=== PATIENT | female | born 1955 | race American Indian/Alaskan Native ===

== ENCOUNTER 2020-11-05 22:40 | Inpatient (IN) ==
--- NOTE | 2020-11-05 23:25 | Internal Med History&Physical ---
HPI History of Present Illness Patient information: Note initiated : 11/05/20 at 11:14 pm Service Date, if different from initiated Date: [] Patient: Margarita French a 64 y/o F admitted on for Renal Failure. Chief Complaint: [hypoglycemia, hypertensive urgency, progression of CKD ] History of present illness: Ms. French is a 64 year old F type 2 diabetes, chronic kidney disease, essential hypertension, presenting with couple day history of malaise, hyperglycemia, and uncontrolled blood pressures. Patient has chronic history of chronically diseased and her serum creatinine level has been progressing from less than 2 from 2021 gradually above to since 2019. Over the last 2 days, patient has experienced both malaise, uncontrolled blood pressures, as well as hyperglycemia and she had to drink Pepsi in order to keep her blood sugar to stay about 70s. Due to all her symptoms, she presented to her PCP office yesterday and the chemistry shows that her serum creatinine level was 3.6 and she was called to come to outpatient ED for further evaluations. Vital signs at ED presentations significant for systolic blood pressures above 200s. Labs significant for creatinine level from 11/04/2020 at 3.6. Outpatient ED doctor felt like [facility] consult was indicated and he called our [facility] who accepted the patient. Hospitalist service consulted for admission request. Constitutional Constitutional: Present malaise; Absent chills, excessive sweating, fatigue, fever(s) and weakness EENT Eyes: Absent blurry vision, change in vision, loss of vision and other visual disturbances Ears: Absent decreased hearing and tinnitus Nose, mouth and throat: Absent abnormal hearing, dry mouth, headache(s), nasal congestion and sore throat Cardiovascular Cardiovascular: Absent chest pain, chest pain at rest, edema, irregular heart rhythm and palpatations Respiratory Respiratory: Absent cough, dyspnea and wheezing Gastrointestinal Gastrointestinal: Absent abdominal pain, constipation, diarrhea, nausea and vomiting Musculoskeletal Musculoskeletal: Absent back pain, deformity, limited range of motion, muscle cramps, muscle weakness and numbness Integumentary Integumentary: Absent lesions, rash and wounds Neurological Neurological: Absent focal weakness, headache(s) and numbness Psychiatric Psychiatric: Absent anxiety, depression and hallucinations Endocrine Additional comments: hypoglycemia PFSH PFSH All Active Problems (Updated 11/05/20 @ 23:19 by New Raymond MD) Hypoglycemia (Acute) Hypertensive urgency (Acute) CKD (chronic kidney disease) stage 5, GFR less than 15 ml/min (Acute) Stage 3 chronic kidney disease (Acute) Opioid dependence (Chronic) Major depression, recurrent, chronic (Chronic) PTSD (post-traumatic stress disorder) (Chronic) History of ectopic (Chronic ~1986) Hiatal hernia (Chronic ~1988) Family history of breast cancer (Chronic) Depression (Chronic) Proliferative diabetic retinopathy associated with type 2 diabetes mellitus (Chronic) Diabetic peripheral neuropathy associated with type 2 diabetes mellitus (Chronic) Pain (Chronic) Influenza (Chronic) Edema (Chronic) Diarrhea (Chronic) Acute UTI (Chronic) Alopecia areata (Chronic) Abnormal liver enzymes (Chronic) Malaise and fatigue (Chronic) Primary fibromyalgia syndrome (Chronic) Adjustment disorder with depressed mood (Chronic) Diabetes mellitus (Chronic) Adjustment disorder (Chronic) Chronic pain (Chronic) Backache (Chronic) Vitamin D deficiency (Chronic) Knee pain (Chronic) Bakers cyst (Chronic) Constipation (Chronic) Proteinuria (Chronic) Vitamin B12 deficiency (non anemic) (Chronic) Right wrist sprain (Chronic) Obesity (Chronic) Adenomatous colon polyp (Chronic) Chronic kidney disease, stage I (Chronic) Perimenopause (Chronic) Cotton wool spots (Chronic) Diabetes mellitus with retinopathy (Chronic) Microalbuminuria (Chronic) Early cataracts, bilateral (Chronic) Hx of total knee arthroplasty (Chronic 08/23/15) Change in mental status (Chronic) Encounter for long-term current use of other high-risk medications (Chronic) Osteoporosis (Chronic) Compression fracture of body of thoracic vertebra (Chronic) Paresthesia of both hands (Chronic) Right knee pain (Chronic) Encounter for long-term (current) use of other high-risk medications (Chronic) Fibromyalgia (Chronic) History of orthopedic surgery (Chronic) History of appendectomy (Chronic ~1988) History of cholecystectomy (Chronic ~1988) Hypertension, essential (Chronic) Hyperlipidemia (Chronic) Diabetes mellitus, type II (Chronic) Osteoarthritis (Chronic) Osteophyte of foot (Chronic) Pain, joint, multiple sites (Chronic) Rheumatoid arthritis (Chronic) Medical History (Updated 11/05/20 @ 23:19 by New Raymond MD) Abnormal liver enzymes Acute UTI Adenomatous colon polyp Adjustment disorder Adjustment disorder with depressed mood Alopecia areata Backache Bakers cyst Change in mental status Chronic kidney disease, stage I Chronic pain Compression fracture of body of thoracic vertebra Constipation Cotton wool spots OU Depression Diabetes mellitus Diabetes mellitus with retinopathy Diabetes mellitus, type II Diabetic peripheral neuropathy associated with type 2 diabetes mellitus Diarrhea Early cataracts, bilateral Edema Encounter for long-term (current) use of other high-risk medications Encounter for long-term current use of other high-risk medications Family history of breast cancer Fibromyalgia Hiatal hernia (~1988) History of ectopic (~1986) Hyperlipidemia Hypertension, essential Influenza Knee pain Major depression, recurrent, chronic Malaise and fatigue Microalbuminuria Obesity Opioid dependence Osteoarthritis Osteophyte of foot Involving the head of the left second metacarpal Osteoporosis Pain Pain, joint, multiple sites Paresthesia of both hands Perimenopause Primary fibromyalgia syndrome Proliferative diabetic retinopathy associated with type 2 diabetes mellitus Proteinuria PTSD (post-traumatic stress disorder) Rheumatoid arthritis Right knee pain Right wrist sprain Stage 3 chronic kidney disease Vitamin B12 deficiency (non anemic) Vitamin D deficiency Surgical History (Updated 10/27/20 @ 13:56 by Jenny Granados) History of appendectomy (~1988) History of arthroscopy of knee (06/06/13) History of cholecystectomy (~1988) History of colonoscopy (04/26/07) History of herniorrhaphy Hiatal History of orthopedic surgery History of salpingectomy (~1986) Right due to ectopic History of tonsillectomy (~1966) History of tooth extraction Hx of total knee arthroplasty (08/23/15) Status post cataract extraction and insertion of intraocular lens (05/01/12) Status post laser cataract surgery (05/15/12) Family History Unknown Arthritis Mother Malignant neoplasm Father Type 2 diabetes mellitus Grandmother Breast cancer Maternal Maternal Social History (Updated 10/27/20 @ 13:58 by Jenny Granados) adopted: No caregiver/support person: No foster care: No household members: family housing: house lives independently: No marital status: occupational status: unemployed and disabled occupational exposures/hazards: No smoking status: Former smoker alcohol intake frequency: does not drink substance use type: does not use additional history: Quit smoking in 2019. MEDS/ALLERGIES Home Medications and Allergies Home Medications Medication Instructions Recorded Confirmed Type insulin aspart U-100 100 unit/mL 20 unit SUB-Q AC ml 04/08/15 02/02/20 History subcutaneous solution insulin glargine 100 unit/mL 20 unit SUB-Q BID ml 04/08/15 02/02/20 History subcutaneous solution blood sugar diagnostic #20 each 08/15/17 12/24/19 History calcium carbonate-vitamin D2 PO BID 08/15/17 02/02/20 History [Oyster Shell Calcium-Vit D2] cyanocobalamin (vitamin B-12) 1,000 mcg SUB-Q QMONTH 08/15/17 02/02/20 History 1,000 mcg/mL injection kit lancets #50 each 08/15/17 02/02/20 History pen needle, diabetic #1 08/15/17 02/02/20 History docusate sodium 100 mg capsule 100 mg PO BID PRN cap 01/23/18 02/02/20 History polyethylene glycol MISCELLANE QDAY PRN 01/23/18 02/02/20 History clotrimazole 1 % topical cream 1 applic TOPICAL BID 09/24/19 02/02/20 History ergocalciferol (vitamin D2) 50,000 unit PO QWEEK tab 09/24/19 10/27/20 History unit tablet magnesium oxide 420 mg tablet 420 mg PO QDAY 09/24/19 02/02/20 History metoclopramide HCl 10 mg tablet 10 mg PO QACHS 09/24/19 02/02/20 History methocarbamol 500 mg tablet 500 mg PO TID 02/02/20 10/27/20 History metoprolol succinate 25 mg capsule 25 mg PO QDAY 02/02/20 10/27/20 History sprinkle, ext. release 24 hr morphine 30 mg immediate release 30 mg PO TID tab 02/02/20 10/27/20 History tablet zolpidem 5 mg tablet 5 mg PO QHS PRN 02/02/20 10/27/20 History insulin detemir U-100 100 unit/mL 60 unit SUB-Q BID ml 10/27/20 10/27/20 History (3 mL) subcutaneous pen insulin lispro 100 unit/mL 20 unit SUBCUT TID ml 10/27/20 10/27/20 History subcutaneous solution naloxone 4 mg/actuation nasal spray 1 spray INTRANASAL Q2M 10/27/20 10/27/20 History omeprazole 20 mg capsule,delayed 20 mg PO QAM cap 10/27/20 10/27/20 History release Allergies Allergy/AdvReac Type Severity Reaction Status Date / Time gabapentin Allergy Intermediate Hives Verified 02/02/20 15:02 methotrexate Allergy Intermediate Hives Verified 02/02/20 15:02 duloxetine Allergy Unknown Unknown Verified 02/02/20 15:02 glipizide Allergy Unknown Unknown Verified 02/02/20 15:02 pioglitazone [From Actos] Allergy Unknown Unknown Verified 02/02/20 15:02 Rosiglitazone [From Avandia] Allergy Unknown Unknown Verified 02/02/20 15:02 EXAM Constitutional General appearance: cooperative and no acute distress Head Head exam: Present atraumatic and normocephalic Eye Eye exam: Present EOMI and PERRL ENT ENT exam: Present mucous membranes moist, normal exam and normal external ear exam Neck Neck exam: Present normal inspection; Absent lymphadenopathy, tenderness and thyromegaly Respiratory Respiratory exam: Absent accessory muscle use, respiratory distress and wheezes Cardiovascular Cardiovascular exam: Present normal rate and rhythm; Absent JVD GI/Abdominal GI/Abdominal exam: Present normal bowel sounds and soft; Absent organomegaly and tenderness Extremities Exam Extremities exam: Present full ROM, normal capillary refill and normal inspection; Absent tenderness Neurological Exam Neurological exam: Present alert, CN II-XII intact and oriented X3; Absent motor sensory deficit Psychiatric Psychiatric exam: Present normal affect and normal mood; Absent anxious and depressed Skin Skin exam: Present dry and intact A/P Assessment and plan (1) CKD (chronic kidney disease) stage 5, GFR less than 15 ml/min: Status: Acute (2) Diabetic peripheral neuropathy associated with type 2 diabetes mellitus: Status: Chronic (3) Diabetes mellitus, type II: Status: Chronic (4) Hyperlipidemia: Status: Chronic (5) Hypertensive urgency: Status: Acute (6) Opioid dependence: Status: Chronic Qualifiers: Substance use status: uncomplicated Qualified Code(s): F11.20 - Opioid dependence, uncomplicated (7) Hypoglycemia: Status: Acute Narrative A/P Narrative: Assessment and Plans: 1. Progression of chronic kidney disease, now stage 5: Inpatient PCU [employer] [employer] Super[employer] consulted for co-management Avoid nephrotoxic agents CMP in the morning to trend kidney functions Patient still makes urine, no need for dialysis yet 2. Hypoglycemia associated with T2DM: Due to natural progression of her chronic kidney disease, her kidneys are not as effective in clearing insulin as before. If she did not have recent dosage adjustment of her insulin regimen, she might be overdosed on her present insulin regimen HgA1c Hold any scheduled insulin therapy Low dose correctional scale insulin Lispro AC HS Accu Chek AC HS Hypoglycemia protocol Diabetic diet 3. Hypertensive urgency: Hydralazine 10mg IV q4hr PRN SBP>=180mmHg and/or DBP>=110mmHh Hydralazine 25mg PO QID Amlodipine 10mg PO daily Avoid SKINNY-i or ARB in face of CKD5 4. Opioid dependence: Need to dose-adjust home dose of Morphine, due to natural progression of her chronic kidney disease hence reduced renal clearance of opioids GI ppx: continue home oral PPI DVT ppx: Heparin Code status: Guarded Disposition: inpatient PCU Time Spent With Patient Time: Total time spent is greater than 50% in coordination of care (as documented) at patient's floor/unit and/or counseling patient: Total time spent with greater than 50% in coordination of care (as documented) at patient's floor/unit and/or counseling patient:: Greater than 35 minutes
[2020-11-05] MEDS ORDERED: METOCLOPRAMIDE 10 MG TABLET PO SCH (23:30)
[2020-11-06] MEDS ORDERED: DEXTROSE 31 GM ORAL.SUSP PO PRN (00:56)
[2020-11-06] MEDS ORDERED: ONDANSETRON 4 MG/2 ML VIAL IV PRN (00:56)
[2020-11-06] MEDS ORDERED: DEXTROSE 50% 50 ML VIAL IV PRN (00:56)
[2020-11-06] MEDS ORDERED: ACETAMINOPHEN 325 MG TABLET PO PRN (00:56)
[2020-11-06] MEDS ORDERED: hydrALAZINE 20 MG/ML VIAL IV PRN (00:56)
[2020-11-06] MEDS ORDERED: ZOLPIDEM 5 MG TABLET PO PRN (00:56)
[2020-11-06] MEDS ORDERED: morphine 4 MG/ML VIAL IV PRN (00:56)
[2020-11-06] MEDS ORDERED: amLODIPine 5 MG TABLET ONE (01:40)
[2020-11-06] MEDS: hydrALAZINE 25 MG TABLET PO SCH ×2 (01:42→09:36)
[2020-11-06] MEDS: amLODIPine 10 MG TABLET PO SCH ×2 (01:42→09:32)
[2020-11-06] MEDS ORDERED: 0.9 % SODIUM CHLORIDE 10 ML SYRINGE IV SCH (06:00)
[2020-11-06 06:32] LABS: Basophils # (Auto) 0.05 K/mcL (0.00-0.30); Basophils % (Auto) 0.6 % (0.0-2.0); Eosinophils # (Auto) 0.46 K/mcL (0.00-0.70); Eosinophils % (Auto) 5.4 % (0.0-7.0); Hematocrit 35.1 % (34.1-44.9); Hemoglobin 11.4 g/dL (11.2-15.7); Lymphocytes # (Auto) 1.88 K/mcL (1.50-4.80); Lymphocytes % (Auto) 21.9 % (15.5-49.0); Mean Cell Volume 93.1 fL (80.0-100.0); Mean Corpuscular HGB Conc 32.5 g/dL (31.0-36.0); Mean Platelet Volume 10.8 fL (7.4-10.4); Monocytes # (Auto) 0.63 K/mcL (0.10-0.90); Monocytes % (Auto) 7.4 % (1.0-12.0); Neutrophils % (Auto) 64.7 % (38.0-78.0); Platelet Count 184 K/mcL (140-440); RBC 3.77 M/mcL (3.59-5.38); WBC 8.6 K/mcL (4.5-11.0)
[2020-11-06 07:11] LABS: ALT/SGPT 8 U/L (<40); AST/SGOT 12 U/L (<32); Albumin 2.4 gm/dL (3.2-5.2); Albumin/Globulin Ratio 0.8 (1.0-2.3); Alkaline Phosphatase 68 U/L (39-117); Bilirubin,Total < 0.2 mg/dL (0.1-1.0); Blood Urea Nitrogen 31 mg/dL (8-23); Calcium 7.7 mg/dL (8.6-10.4); Carbon Dioxide 20 mmol/L (22-30); Chloride 106 mmol/L (96-108); Glomerular Filtration Rate 14; Glucose 168 mg/dL (70-105)
[2020-11-06] MEDS ORDERED: METOCLOPRAMIDE 10 MG TABLET PO SCH (07:30)
[2020-11-06] MEDS ORDERED: INSULIN LISPRO 1 UNIT/0.01 ML UNIT SQ SCH (07:30)
--- NOTE | 2020-11-06 08:07 | Nephrology Consult Note ---
HPI Data of Consult Patient: new to practice Consult date: 11/06/20 Requesting physician: New Raymond Primary Care Provider: Matthew Faria Consult Narrative Chief complaint: Weakness Reason for consult: Acute kidney injury on chronic kidney disease stage 4 History of present illness: Margarita French is a 64-year-old female with hypertension, diabetes mellitus type 2, rheumatoid arthritis, chronic kidney disease stage 4 presented to her PCP at [facility] for weakness for 2 days. Next day, her serum creatinine level came back above 4. She was sent to [place] ED. In ED, her systolic blood pressure was above 200 and serum creatinine was 3.6. She was admitted on 11/05/20. Baseline serum creatinine: 0.9-1.4 (eGFR 42-61) in 2015 to 2018, 2.02-2.44 (eGFR 20-25) in 2019. Nephrology consultation was requested for acute kidney injury. cc:: CC: New Raymond MD Constitutional Constitutional: Absent weakness EENT Eyes: Absent change in vision Nose, mouth and throat: Absent sore throat Cardiovascular Cardiovascular: Absent dyspnea and edema Respiratory Respiratory: Absent cough and dyspnea Gastrointestinal Gastrointestinal: Absent nausea and vomiting Genitourinary Genitourinary: Absent dysuria and hematuria Integumentary Integumentary: Absent rash and wounds Neurological Neurological: Absent confusion and weakness Psychiatric Psychiatric: Absent anxiety and panic attacks Hematologic/Lymphatic Hematologic/Lymphatic: Absent easy bleeding and easy bruising Allergic/Immunologic Allergic/Immunologic: Absent tongue swelling and uticaria PFSH PFSH All Active Problems (Updated 11/06/20 @ 08:06 by Jennifer Lopez MD) Metabolic acidosis (Acute) Acute renal failure superimposed on stage 4 chronic kidney disease (Acute) Hypoglycemia (Acute) Hypertensive urgency (Acute) CKD (chronic kidney disease) stage 5, GFR less than 15 ml/min (Acute) Stage 3 chronic kidney disease (Acute) Opioid dependence (Chronic) Major depression, recurrent, chronic (Chronic) PTSD (post-traumatic stress disorder) (Chronic) History of ectopic (Chronic ~1986) Hiatal hernia (Chronic ~1988) Family history of breast cancer (Chronic) Depression (Chronic) Proliferative diabetic retinopathy associated with type 2 diabetes mellitus (Chronic) Diabetic peripheral neuropathy associated with type 2 diabetes mellitus (Chronic) Pain (Chronic) Influenza (Chronic) Edema (Chronic) Diarrhea (Chronic) Acute UTI (Chronic) Alopecia areata (Chronic) Abnormal liver enzymes (Chronic) Malaise and fatigue (Chronic) Primary fibromyalgia syndrome (Chronic) Adjustment disorder with depressed mood (Chronic) Diabetes mellitus (Chronic) Adjustment disorder (Chronic) Chronic pain (Chronic) Backache (Chronic) Vitamin D deficiency (Chronic) Knee pain (Chronic) Bakers cyst (Chronic) Constipation (Chronic) Proteinuria (Chronic) Vitamin B12 deficiency (non anemic) (Chronic) Right wrist sprain (Chronic) Obesity (Chronic) Adenomatous colon polyp (Chronic) Chronic kidney disease, stage I (Chronic) Perimenopause (Chronic) Cotton wool spots (Chronic) Diabetes mellitus with retinopathy (Chronic) Microalbuminuria (Chronic) Early cataracts, bilateral (Chronic) Hx of total knee arthroplasty (Chronic 08/23/15) Change in mental status (Chronic) Encounter for long-term current use of other high-risk medications (Chronic) Osteoporosis (Chronic) Compression fracture of body of thoracic vertebra (Chronic) Paresthesia of both hands (Chronic) Right knee pain (Chronic) Encounter for long-term (current) use of other high-risk medications (Chronic) Fibromyalgia (Chronic) History of orthopedic surgery (Chronic) History of appendectomy (Chronic ~1988) History of cholecystectomy (Chronic ~1988) Hypertension, essential (Chronic) Hyperlipidemia (Chronic) Diabetes mellitus, type II (Chronic) Osteoarthritis (Chronic) Osteophyte of foot (Chronic) Pain, joint, multiple sites (Chronic) Rheumatoid arthritis (Chronic) Medical History (Updated 11/06/20 @ 08:06 by Jennifer Lopez MD) Abnormal liver enzymes Acute UTI Adenomatous colon polyp Adjustment disorder Adjustment disorder with depressed mood Alopecia areata Backache Bakers cyst Change in mental status Chronic kidney disease, stage I Chronic pain Compression fracture of body of thoracic vertebra Constipation Cotton wool spots OU Depression Diabetes mellitus Diabetes mellitus with retinopathy Diabetes mellitus, type II Diabetic peripheral neuropathy associated with type 2 diabetes mellitus Diarrhea Early cataracts, bilateral Edema Encounter for long-term (current) use of other high-risk medications Encounter for long-term current use of other high-risk medications Family history of breast cancer Fibromyalgia Hiatal hernia (~1988) History of ectopic (~1986) Hyperlipidemia Hypertension, essential Influenza Knee pain Major depression, recurrent, chronic Malaise and fatigue Microalbuminuria Obesity Opioid dependence Osteoarthritis Osteophyte of foot Involving the head of the left second metacarpal Osteoporosis Pain Pain, joint, multiple sites Paresthesia of both hands Perimenopause Primary fibromyalgia syndrome Proliferative diabetic retinopathy associated with type 2 diabetes mellitus Proteinuria PTSD (post-traumatic stress disorder) Rheumatoid arthritis Right knee pain Right wrist sprain Stage 3 chronic kidney disease Vitamin B12 deficiency (non anemic) Vitamin D deficiency Surgical History (Updated 10/27/20 @ 13:56 by Jenny Granados) History of appendectomy (~1988) History of arthroscopy of knee (06/06/13) History of cholecystectomy (~1988) History of colonoscopy (04/26/07) History of herniorrhaphy Hiatal History of orthopedic surgery History of salpingectomy (~1986) Right due to ectopic History of tonsillectomy (~1966) History of tooth extraction Hx of total knee arthroplasty (08/23/15) Status post cataract extraction and insertion of intraocular lens (05/01/12) Status post laser cataract surgery (05/15/12) Family History Unknown Arthritis Mother Malignant neoplasm Father Type 2 diabetes mellitus Grandmother Breast cancer Maternal Maternal Social History (Updated 10/27/20 @ 13:58 by Jenny Granados) adopted: No caregiver/support person: No foster care: No household members: family housing: house lives independently: No marital status: occupational status: unemployed and disabled occupational exposures/hazards: No smoking status: Former smoker alcohol intake frequency: does not drink substance use type: does not use additional history: Quit smoking in 2019. MEDS/ALLERGIES Home Medications and Allergies Home Medications Medication Instructions Recorded Confirmed Type blood sugar diagnostic #20 each 08/15/17 12/24/19 History lancets #50 each 08/15/17 02/02/20 History pen needle, diabetic #1 08/15/17 02/02/20 History docusate sodium 100 mg capsule 100 mg PO BID PRN cap 01/23/18 11/06/20 History magnesium oxide 420 mg tablet 420 mg PO QDAY 09/24/19 11/06/20 History morphine 30 mg immediate release 30 mg PO TID tab 02/02/20 11/06/20 History tablet zolpidem 5 mg tablet 5 mg PO QHS PRN 02/02/20 11/06/20 History insulin detemir U-100 100 unit/mL 44 unit SUB-Q QAM ml 10/27/20 11/06/20 History (3 mL) subcutaneous pen naloxone 4 mg/actuation nasal spray 1 spray INTRANASAL DAILY PRN 10/27/20 11/06/20 History flash glucose scanning reader 11/06/20 11/06/20 History [FreeStyle Bowen 14 Day [place]] insulin lispro [Admelog U-100 See Protocol SUBCUT ACHS 11/06/20 11/06/20 History Insulin lispro] naloxone [Narcan] INTRANASAL 11/06/20 11/06/20 History polyethylene glycol 3350 [Miralax] 17 g PO DAILY PRN 11/06/20 11/06/20 History Allergies Allergy/AdvReac Type Severity Reaction Status Date / Time gabapentin Allergy Intermediate Hives Verified 11/06/20 01:08 methotrexate Allergy Intermediate Hives Verified 11/06/20 01:08 duloxetine Allergy Unknown Unknown Verified 11/06/20 01:08 glipizide Allergy Unknown Unknown Verified 11/06/20 01:08 pioglitazone [From Actos] Allergy Unknown Unknown Verified 11/06/20 01:08 Rosiglitazone [From Avandia] Allergy Unknown Unknown Verified 11/06/20 01:08 Physical Examination Vital Signs Vital signs: Temp Pulse Resp BP Pulse Ox 98.2 F 80 18 113/49 98 11/06/20 04:01 11/06/20 05:01 11/06/20 05:01 11/06/20 05:01 11/06/20 05:01 General Appearance General appearance: well-developed and well-nourished EENT EENT: mucous membranes moist Neck Neck: no JVD Respiratory Respiratory: clear Cardiovascular Cardiology: no edema, regular rate and regular rhythm Gastrointestinal Gastrointestinal: no tenderness Integumentary Integumentary: no rash Neurologic Neurologic: no focal deficit and alert and oriented x3 Psychiatric Psychiatric: mood/affect appropriate and cooperative Results Lab Results Result Diagrams: 11/06/20 05:14 11/06/20 05:14 Lab results: Most recent lab results Calcium 7.7 mg/dL (8.6-10.4) L 11/06/20 05:14 A/P Assessment and plan (1) Acute renal failure superimposed on stage 4 chronic kidney disease: Assessment and plan: Margarita French is a 64-year-old female with hypertension, diabetes mellitus type 2, rheumatoid arthritis, chronic kidney disease stage 4 presented to her PCP at [facility] for weakness for 2 days. Next day, her serum creatinine level came back above 4. She was sent to [place] ED. In ED, her systolic blood pressure was above 200 and serum creatinine was 3.6. She was admitted on 11/05/20. Baseline serum creatinine: 0.9-1.4 (eGFR 42-61) in 2015 to 2019, 2.02-2.44 (eGFR 20-25) in 2019. Nephrology consultation was requested for acute kidney injury. Acute kidney injury on chronic kidney disease stage 4 with metabolic acidosis, present on arrival. There is no recent history of IV contrast administration or NSAID use. Intravascular volume depletion is unlikely. She was referred for outpatient nephrology on 10/18/[address] Connor on 11/09/20. Hypertensive urgency. She used Lisinopril in the past, but it was discontinued for hypotension. She was not on any antihypertensives. Current Medications: Amlodipine 10 mg daily, Hydralazine 25 mg four times daily, Metoprolol succinate 25 mg daily. Previous work up: Labs on 12/24/19: HepB S Ag negative, Hep C Ab negative. Urinalysis on 08/23/15: Yellow, Clear, pH 5.0, SG 1.019, protein >500, blood negative, leukocyte esterase negative, urine WBC. Renal US on 10/27/20: Postvoid residual 24 ml, otherwise normal. CT Abdomen and Pelvis without contrast on 08/24/15: Kidneys normal. Progress: Serum creatinine increased from 3.5 to 3.4 overnight. Baseline serum creatinine: 0.9-1.4 (eGFR 42-61) in 2015 to 2018, 2.02-2.44 (eGFR 20-25) in 2019. Urine output: 200 ml reported overnight. Metabolic acidosis, mild. Hypertension, controlled. Recommendations/Plan: No acute hemodialysis need. Avoid NSAIDs, nephrotoxic medications and IV contrast. Monitor BMP and urine output. She was referred for outpatient nephrology on 10/18/[address] Connor on 11/09/20. She may be discharged and seen as outpatient. Status: Acute (2) Metabolic acidosis: Status: Acute (3) Hypertensive urgency: Status: Acute Time Spent With Patient Time: Total time spent is greater than 50% in coordination of care (as documented) at patient's floor/unit and/or counseling patient:
[2020-11-06] MEDS ORDERED: MORPHINE 30 MG PO SCH (09:00)
[2020-11-06] MEDS ORDERED: CLOTRIMAZOLE CRM 1% 1 DOSE TUBE TOPICAL SCH ×2 (09:00)
[2020-11-06] MEDS ORDERED: DOCUSATE SODIUM 100 MG CAPSULE PO SCH (09:00)
[2020-11-06] MEDS ORDERED: METOPROLOL SUCCINATE 25 MG PO SCH (09:00)
[2020-11-06] MEDS ORDERED: METHOCARBAMOL 500 MG TABLET PO SCH ×2 (09:00)
[2020-11-06] MEDS ORDERED: HEPARIN 5,000 UNIT/ML VIAL SQ SCH (09:00)
[2020-11-06] MEDS ORDERED: MAGNESIUM OXIDE 400 MG TABLET PO SCH (09:00)
[2020-11-06] MEDS ORDERED: [UNRECOGNIZED DRUG - OTHER] SUB-Q SCH (09:00)
[2020-11-06] MEDS ORDERED: MAGNESIUM OXIDE 420 MG PO SCH (09:00)
[2020-11-06] MEDS ORDERED: OMEPRAZOLE 20 MG CAPSULE PO SCH ×2 (09:00)
[2020-11-06] MEDS ORDERED: METOPROLOL SUCCINATE 25 MG TAB.XL.24H PO SCH (09:00)
[2020-11-06] MEDS ORDERED: CYANOCOBALAMIN 1000 MCG SUB-Q SCH (09:00)
[2020-11-06] MEDS ORDERED: [UNRECOGNIZED DRUG - OTHER] PO SCH (09:00)
[2020-11-06] MEDS ORDERED: CYANOCOBALAMIN SUB-Q SCH (09:00)
--- NOTE | 2020-11-06 09:48 | Discharge Summary ---
Discharge Provider Provider Patient information: Note initiated : 11/06/20 at 9:45 am Service Date, if different from initiated Date: [] Patient: Margarita French 64 y/o F admitted on 11/06/20 for Renal Failure. Chief Complaint: [HTN urgency, hypoglycemia] Date of admission: 11/06/20 00:46 Discharge date: 11/06/20 Primary care physician: Matthew Faria Discharge Meds Discharge Medications Home Medications blood sugar diagnostic #20 each 08/15/17 [History Confirmed 12/24/19 Last Taken Unknown] lancets #50 each 08/15/17 [History Confirmed 02/02/20 Last Taken Unknown] pen needle, diabetic #1 08/15/17 [History Confirmed 02/02/20 Last Taken Unknown] docusate sodium 100 mg capsule 100 mg PO BID PRN cap 01/23/18 [History Confirmed 11/06/20 Last Taken Unknown] magnesium oxide 420 mg tablet 420 mg PO QDAY 09/24/19 [History Confirmed 11/06/20 Last Taken 10/30/20] zolpidem 5 mg tablet 5 mg PO QHS PRN 02/02/20 [History Confirmed 11/06/20 Last Taken 11/03/20] naloxone 4 mg/actuation nasal spray 1 spray INTRANASAL DAILY PRN 10/27/20 [History Confirmed 11/06/20 Last Taken Unknown] FreeStyle Bowen 14 Day Hanson 11/06/20 [History Confirmed 11/06/20 Last Taken Unknown] amlodipine 10 mg PO DAILY 30 Days tab 11/06/20 [Rx Last Taken Unknown] bisacodyl [Dulcolax (bisacodyl)] [address] QDAY PRN #12 ea 11/06/20 [Rx Last Taken Unknown] hydralazine 25 mg PO QID 30 Days #120 tab 11/06/20 [Rx Last Taken Unknown] insulin lispro [Admelog U-100 Insulin lispro] See Protocol SUBCUT ACHS 11/06/20 [History Confirmed 11/06/20 Last Taken Unknown] morphine 15 mg PO TID 7 Days 11/06/20 [Rx Last Taken Unknown] omeprazole 20 mg PO QAM #10 cap 11/06/20 [Rx Last Taken Unknown] polyethylene glycol 3350 [Miralax] 17 g PO DAILY PRN 11/06/20 [History Confirmed 11/06/20 Last Taken Unknown] COURSE Hospital Course Hospital course: Patient was admitted on November 05, 2020 for hypertensive urgency, hypoglycemia, as well as progressions of chronic kidney disease now to stage V. Hypoglycemia protocol was initiated and scheduled insulin therapy were held. Oral antihypertensives were all instituted to achieve adequate blood pressure control. Patient continue to made urine. Sr. Logistics Analyst was consulted and thought no hemodialysis was indicated at the time being and continuations of oral antihypertensives were appropriate. Patient achieved clinical stability on second day of hospitalization and she recovered quicker than expectations. The decision was made to discharge patient home with prescriptions given to her, instructions to follow-up with PCP in 1 to 2 weeks given to her, and all questions were answered prior to patient being physically discharged. Discharge diagnosis: hypoglycemia, HTN urgency Time Spent with Patient Time attestation: Total time spent providing and/or coordinating discharge services: Patient was admitted on November 05, 2020 for hypertensive urgency, hypoglycemia, as well as progressions of chronic kidney disease now to stage V. Hypoglycemia protocol was initiated and scheduled insulin therapy were held. Oral antihypertensives were all instituted to achieve adequate blood pressure control. Patient continue to made urine. Sr. Logistics Analyst was consulted and thought no hemodialysis was indicated at the time being and continuations of oral antihypertensives were appropriate. Patient achieved clinical stability on second day of hospitalization and she recovered quicker than expectations. The decision was made to discharge patient home with prescriptions given to her, instructions to follow-up with PCP in 1 to 2 weeks given to her, and all questions were answered prior to patient being physically discharged. EXAM Constitutional Vitals: Temp Pulse Resp BP Pulse Ox 37.4 C H 77 18 144/69 97 11/06/20 08:02 11/06/20 08:02 11/06/20 08:02 11/06/20 08:02 11/06/20 08:02 General appearance: cooperative and no acute distress Head Head exam: Present atraumatic and normocephalic Eye Eye exam: Present EOMI and PERRL ENT ENT exam: Present mucous membranes moist, normal exam and normal external ear exam Neck Neck exam: Present normal inspection; Absent lymphadenopathy, tenderness and thyromegaly Respiratory Respiratory exam: Absent accessory muscle use, respiratory distress and wheezes Cardiovascular Cardiovascular exam: Present normal rate and rhythm; Absent JVD GI/Abdominal GI/Abdominal exam: Present normal bowel sounds and soft; Absent organomegaly and tenderness Extremities Exam Extremities exam: Present full ROM, normal capillary refill and normal inspection; Absent tenderness Neurological Exam Neurological exam: Present alert, CN II-XII intact and oriented X3; Absent motor sensory deficit Psychiatric Psychiatric exam: Present normal affect and normal mood; Absent anxious and depressed Skin Skin exam: Present dry and intact Discharge Data Data Completed and Pending Labs on day of discharge: Labs from last 24 hours 11/06/20 11/06/20 05:14 05:14 WBC 8.6 RBC 3.77 Hgb 11.4 Hct 35.1 MCV 93.1 MCH 30.2 MCHC 32.5 RDW 13.0 Plt Count 184 MPV 10.8 H Neut % (Auto) 64.7 Lymph % (Auto) 21.9 [place] % (Auto) 7.4 Eos % (Auto) 5.4 Baso % (Auto) 0.6 Lymph # (Auto) 1.88 [place] # (Auto) 0.63 Eos # (Auto) 0.46 Baso # (Auto) 0.05 Absolute Neutrophils 5.55 Sodium 136 Potassium 4.1 Chloride 106 Carbon Dioxide 20 L Anion Gap 10.0 BUN 31 H Creatinine 3.4 H GFR Calculation 14 Glucose 168 H Calcium 7.7 L Total Bilirubin < 0.2 AST 12 ALT 8 Alkaline Phosphatase 68 Total Protein 5.4 L Albumin 2.4 L Globulin 3.0 Albumin/Globulin Ratio 0.8 L Discharge Plan Patient/Caregiver Discharge Instructions Activity: increase activity as tolerated Diet: Consistent Carbohydrate Prescriptions: New hydralazine 25 mg Tablet 25 mg PO QID 30 Days Qty: 120 RF: 0 amlodipine 10 mg Tablet 10 mg PO DAILY 30 Days RF: 0 omeprazole 20 mg Capsule,Delayed Release(Dr/Ec) 20 mg PO QAM Qty: 10 RF: 0 Morphine 15 mg PO TID 7 Days RF: 0 bisacodyl [Dulcolax (bisacodyl)] 10 mg suppository [address] QDAY PRN (Reason: constipation) Qty: 12 RF: 0 Continued zolpidem 5 mg tablet 5 mg PO QHS PRN (Reason: Insomnia) RF: 0 (DME) blood sugar diagnostic [FreeStyle Lite Strips] strip See Dose Instructions .ROUTE .MEDSUPPLY Qty: 20 RF: 0 (DME) pen needle, diabetic needle See Dose Instructions .ROUTE .MEDSUPPLY Qty: 1 RF: 0 (DME) lancets misc See Dose Instructions .ROUTE .MEDSUPPLY Qty: 50 RF: 0 magnesium oxide 420 mg tablet 420 mg PO QDAY RF: 0 Narcan 4 mg/actuation spray,non-aerosol 1 spray intranasal DAILY PRN (Reason: (Drug) Ingestion) RF: 0 docusate sodium 100 mg capsule 100 mg PO BID PRN (Reason: Constipation) RF: 0 insulin lispro [Admelog U-100 Insulin lispro] 100 unit/mL solution See Protocol sliding scale dose subcut ACHS RF: 0 polyethylene glycol 3350 [Miralax] 17 gram Powder In Packet 17 g PO DAILY PRN (Reason: Constipation) RF: 0 (DME) FreeStyle Bowen 14 Day Hanson Misc MISCELLANEOUS RF: 0 Discontinued morphine 30 mg tablet 30 mg PO TID RF: 0 Levemir FlexTouch U-100 Insuln 100 unit/mL (3 mL) insulin pen 44 unit SUB-Q QAM RF: 0 Follow Up Plan Patient Disposition: Home, Self-Care Rehab Potential: Good I certify that the patient requires SNF services: No Overall status at discharge: patient is back to baseline Discharge Orders: Discharge Order (Routine); Ordered 11/06/20 Ordered By: New Raymond
[2020-11-06] MEDS ORDERED: morphine 15 MG TABLET PO PRN (10:18)
[2020-11-06] MEDS ORDERED: SENNOSIDES 1 TABLET PO SCH (21:00)
== END 2020-11-06 11:42 | disposition home or self-care (01) | DRG 305 ==
LOC: ICU 11-06 00:46
PROVIDERS: ADMIT Internal Medicine; ATTEND Internal Medicine

== ENCOUNTER 2022-03-21 19:50 | Inpatient (IN) ==
[2022-03-21] MEDS ORDERED: ACETAMINOPHEN 325 MG TABLET PO PRN (21:21)
[2022-03-21] MEDS ORDERED: IBUPROFEN 600 MG TABLET PO PRN (21:21)
[2022-03-21] MEDS ORDERED: ONDANSETRON 4 MG/2 ML VIAL IV PRN (21:21)
[2022-03-21] MEDS: 0.9 % SODIUM CHLORIDE 10 ML SYRINGE IV SCH (21:37)
[2022-03-21] MEDS ORDERED: HYDROcodone/APAP 5/325MG TABLET PO ONE (21:43)
[2022-03-21] MEDS: HYDROcodone/APAP 5/325MG TABLET PO PRN (21:47)
[2022-03-22] MEDS: HYDROcodone/APAP 5/325MG TABLET PO PRN ×4 (01:59→21:56)
[2022-03-22] MEDS: 0.9 % SODIUM CHLORIDE 10 ML SYRINGE IV SCH ×3 (05:37→21:47)
[2022-03-22 06:09] LABS: Basophils # (Auto) 0.03 K/mcL (0.00-0.30); Basophils % (Auto) 0.4 % (0.0-2.0); Eosinophils # (Auto) 0.14 K/mcL (0.00-0.70); Eosinophils % (Auto) 1.9 % (0.0-7.0); Hematocrit 31.1 % (34.1-44.9); Hemoglobin 9.7 g/dL (11.2-15.7); Lymphocytes # (Auto) 0.69 K/mcL (1.50-4.80); Lymphocytes % (Auto) 9.3 % (15.5-49.0); Mean Corpuscular HGB Conc 31.2 g/dL (31.0-36.0); Mean Platelet Volume 9.8 fL (8.8-12.5); Monocytes # (Auto) 0.43 K/mcL (0.10-0.90); Monocytes % (Auto) 5.8 % (1.0-12.0); Neutrophils % (Auto) 82.3 % (38.0-78.0); Platelet Count 132 K/mcL (140-440); RBC 3.38 M/mcL (3.59-5.38); WBC 7.5 K/mcL (4.5-11.0)
--- NOTE | 2022-03-22 06:15 | Nephrology Consult Note ---
HPI Date of Consult Consult Date: 03/22/22 Requesting physician: Lucille Rock Primary Care Provider: YESSICA Colin Consult Narrative Chief complaint: Right hip pain Reason for consult: End stage renal disease on hemodialysis History of present illness: Margarita French is a 66-year-old female with end stage renal disease on hemo dialysis, chronic anemia due to ESRD, hypertension, diabetes mellitus type 2, rheumatoid arthritis, history of DVT on Apixaban, peripheral artery disease s/p stenting transferred from [facility] for hip fracture. Nephrology consultation was requested for end stage renal disease. cc:: CC: Lucille Rock MD Constitutional Constitutional: Present weakness; Absent headache(s) EENT Nose, mouth and throat: Absent nasal congestion or sore throat Cardiovascular Cardiovascular: Absent chest pain or palpatations Respiratory Respiratory: Absent dyspnea or wheezing Gastrointestinal Gastrointestinal: Absent abdominal pain, nausea or vomiting Genitourinary Genitourinary: Absent dysuria or hematuria Musculoskeletal Musculoskeletal: Absent joint swelling Integumentary Integumentary: Present wounds (right ankle); Absent rash Neurological Neurological: Present weakness; Absent confusion Psychiatric Psychiatric: Absent anxiety or panic attacks Hematologic/Lymphatic Hematologic/Lymphatic: Absent easy bleeding or easy bruising Allergic/Immunologic Allergic/Immunologic: Absent tongue swelling or uticaria PFSH PFSH All Active Problems (Updated 03/22/22 @ 06:13 by Jennifer Lopez MD) ESRD on hemodialysis (Chronic) Rheumatoid arthritis (Chronic) Pain, joint, multiple sites (Chronic) Osteophyte of foot (Chronic) Osteoarthritis (Chronic) Diabetes mellitus, type II (Chronic) Hyperlipidemia (Chronic) Hypertension, essential (Chronic) History of cholecystectomy (Chronic ~1988) History of appendectomy (Chronic ~1988) History of orthopedic surgery (Chronic) Fibromyalgia (Chronic) Encounter for long-term (current) use of other high-risk medications (Chronic) Right knee pain (Chronic) Paresthesia of both hands (Chronic) Compression fracture of body of thoracic vertebra (Chronic) Osteoporosis (Chronic) Encounter for long-term current use of other high-risk medications (Chronic) Hx of total knee arthroplasty (Chronic 08/23/15) Change in mental status (Chronic) Early cataracts, bilateral (Chronic) Microalbuminuria (Chronic) Diabetes mellitus with retinopathy (Chronic) Cotton wool spots (Chronic) Perimenopause (Chronic) Chronic kidney disease, stage I (Chronic) Adenomatous colon polyp (Chronic) Obesity (Chronic) Right wrist sprain (Chronic) Vitamin B12 deficiency (non anemic) (Chronic) Proteinuria (Chronic) Constipation (Chronic) Bakers cyst (Chronic) Knee pain (Chronic) Vitamin D deficiency (Chronic) Backache (Chronic) Chronic pain (Chronic) Adjustment disorder (Chronic) Diabetes mellitus (Chronic) Adjustment disorder with depressed mood (Chronic) Primary fibromyalgia syndrome (Chronic) Malaise and fatigue (Chronic) Abnormal liver enzymes (Chronic) Alopecia areata (Chronic) Acute UTI (Chronic) Diarrhea (Chronic) Edema (Chronic) Influenza (Chronic) Pain (Chronic) Diabetic peripheral neuropathy associated with type 2 diabetes mellitus (Chronic) Proliferative diabetic retinopathy associated with type 2 diabetes mellitus (Chronic) Depression (Chronic) Family history of breast cancer (Chronic) Hiatal hernia (Chronic ~1988) History of ectopic (Chronic ~1986) Opioid dependence (Chronic) Major depression, recurrent, chronic (Chronic) PTSD (post-traumatic stress disorder) (Chronic) Stage 3 chronic kidney disease (Acute) CKD (chronic kidney disease) stage 5, GFR less than 15 ml/min (Acute) Hypertensive urgency (Acute) Hypoglycemia (Acute) Acute renal failure superimposed on stage 4 chronic kidney disease (Acute) Metabolic acidosis (Acute) CKD stage G4/A3, GFR 15-29 and albumin creatinine ratio >300 mg/g (Acute) Constipation due to pain medication therapy (Acute) Acquired autoimmune hypothyroidism (Acute) Nephrotic range proteinuria (Acute) CKD stage G5/A3, GFR <15 and albumin creatinine ratio >300 mg/g (Chronic) Eosinophilia (Acute) Anemia due to chronic kidney disease (Acute) Secondary hyperparathyroidism of renal origin (Acute) Type 2 DM with CKD stage 5 and hypertension (Acute) Pre-op evaluation (Acute) Mild protein-calorie malnutrition (Chronic) Anemia due to stage 5 chronic kidney disease (Acute) Hyperlipidemia associated with type 2 diabetes mellitus (Acute) Medical History (Updated 03/22/22 @ 06:13 by Jennifer Lopez MD) Abnormal liver enzymes Acute UTI Adenomatous colon polyp Adjustment disorder Adjustment disorder with depressed mood Alopecia areata Backache Bakers cyst Change in mental status Chronic kidney disease, stage I Chronic pain Compression fracture of body of thoracic vertebra Constipation Cotton wool spots OU Depression Diabetes mellitus Diabetes mellitus with retinopathy Diabetes mellitus, type II Diabetic peripheral neuropathy associated with type 2 diabetes mellitus Diarrhea Early cataracts, bilateral Edema Encounter for long-term (current) use of other high-risk medications Encounter for long-term current use of other high-risk medications Family history of breast cancer Fibromyalgia Hiatal hernia (~1988) History of ectopic (~1986) Hyperlipidemia Hypertension, essential Influenza Knee pain Major depression, recurrent, chronic Malaise and fatigue Microalbuminuria Obesity Opioid dependence Osteoarthritis Osteophyte of foot Involving the head of the left second metacarpal Osteoporosis Pain Pain, joint, multiple sites Paresthesia of both hands Perimenopause Primary fibromyalgia syndrome Proliferative diabetic retinopathy associated with type 2 diabetes mellitus Proteinuria PTSD (post-traumatic stress disorder) Rheumatoid arthritis Right knee pain Right wrist sprain Stage 3 chronic kidney disease Vitamin B12 deficiency (non anemic) Vitamin D deficiency Surgical History (Updated 10/27/20 @ 13:56 by Jenny Granados) History of appendectomy (~1988) History of arthroscopy of knee (06/06/13) History of cholecystectomy (~1988) History of colonoscopy (04/26/07) History of herniorrhaphy Hiatal History of orthopedic surgery History of salpingectomy (~1986) Right due to ectopic History of tonsillectomy (~1966) History of tooth extraction Hx of total knee arthroplasty (08/23/15) Status post cataract extraction and insertion of intraocular lens (05/01/12) Status post laser cataract surgery (05/15/12) Family History Unknown Arthritis Mother Malignant neoplasm Father Type 2 diabetes mellitus Grandmother Breast cancer Maternal Maternal Social History (Updated 10/27/20 @ 13:58 by Jenny Granados) adopted: No caregiver/support person: No foster care: No household members: family housing: house lives independently: No marital status: occupational status: unemployed and disabled occupational exposures/hazards: No smoking status: Former smoker alcohol intake frequency: does not drink substance use type: does not use additional history: Quit smoking in 2019. MEDS/ALLERGIES Home Medications and Allergies Home Medications Medication Instructions Recorded Confirmed Type pen needle, diabetic ##1 08/15/17 02/08/22 History flash glucose scanning reader 11/06/20 03/21/22 History (FreeStyle Bowen 14 Day Fulda) apixaban 2.5 mg tablet (Eliquis) 2.5 mg PO DAILY 10/20/21 03/21/22 History insulin lispro 100 unit/mL See Protocol subcut ACHS 10/20/21 03/21/22 History subcutaneous solution (Admelog U-100 Insulin lispro) losartan 25 mg tablet 25 mg PO QDAY 10/20/21 03/21/22 History atorvastatin 20 mg tablet 20 mg PO QHS DM and high 02/08/22 03/21/22 Rx cholesterol #30 tabs Allergies Allergy/AdvReac Type Severity Reaction Status Date / Time gabapentin Allergy Intermediate Hives Verified 02/08/22 09:15 methotrexate Allergy Intermediate Hives Verified 02/08/22 09:15 duloxetine Allergy Unknown Unknown Verified 02/08/22 09:15 glipizide Allergy Unknown Unknown Verified 02/08/22 09:15 pioglitazone [From Actos] Allergy Unknown Unknown Verified 02/08/22 09:15 Rosiglitazone [From Avandia] Allergy Unknown Unknown Verified 02/08/22 09:15 Physical Examination Vital Signs Vital signs: Temp Pulse Resp BP Pulse Ox O2 Del Method 97.3 F 60 12 100/59 96 Room Air 03/22/22 04:00 03/22/22 04:00 03/22/22 04:00 03/22/22 04:00 03/22/22 04:00 03/22/22 04:00 General Appearance General appearance: appears started age and fatigue EENT EENT: mucous membranes moist Neck Neck: no JVD Respiratory Respiratory: clear Cardiovascular Cardiology: no edema, regular rate and regular rhythm Gastrointestinal Gastrointestinal: no tenderness Integumentary Integumentary: ulcer (right ankle) Neurologic Neurologic: alert and oriented x3 Psychiatric Psychiatric: mood/affect appropriate and cooperative Results Lab Results 03/22/22 05:28 03/22/22 05:28 A/P Assessment and plan (1) ESRD on hemodialysis: Assessment and plan: Margarita French is a 66-year-old female with end stage renal disease on hemodialysis, chronic anemia due to ESRD, hypertension, diabetes mellitus type 2, rheumatoid arthritis, history of DVT on Apixaban, peripheral artery disease s/p stenting transferred from [facility] for hip fracture. Nephrology consultation was requested for end stage renal disease. End stage renal disease on hemodialysis on TTS at [facility], followed by Dr. Connor. Last HD on 03/18/22. Right IJ tunneled hemodialysis catheter. Left arm AV fistula placement on 07/14/21, not being used yet. Chronic anemia due to ESRD. No fluid overload. Recommendations/Plan: Hemodialysis today for 3 hours without heparin. Next hemodialysis on Sunday. There is no inpatient hemodialysis on Sunday. Status: Chronic Time Spent With Patient Time: Total time spent is greater than 50% in coordination of care (as documented) at patient's floor/unit and/or counseling patient:
[2022-03-22 06:25] LABS: Blood Urea Nitrogen 30 mg/dL (8-23); Calcium 8.1 mg/dL (8.6-10.4); Carbon Dioxide 24 mmol/L (22-30); Chloride 96 mmol/L (96-108); Glomerular Filtration Rate 10; Glucose 118 mg/dL (70-105)
[2022-03-22] MEDS ORDERED: DEXTROSE 31 GM ORAL.SUSP PO PRN (07:48)
[2022-03-22] MEDS ORDERED: DEXTROSE 50% 50 ML VIAL IV PRN (07:48)
--- NOTE | 2022-03-22 08:00 | Consultation ---
DATE OF CONSULTATION: 03/22/2022 DATE OF CONSULTATION: 03/22/2022 REASON FOR CONSULTATION: Left hip fracture. HISTORY OF PRESENT ILLNESS: The patient is a 66-year-old female who had a syncopal episode and resulted in a fall resulting in left hip fracture. She was initially seen at an outside facility, but secondary to not having dialysis available, she was transferred to [facility] for further evaluation and care. On presentation she complained of left hip pain. No other complaints upon presentation. HOME MEDICATIONS: Eliquis 2.5 daily. Atorvastatin. Insulin. Losartan. ALLERGIES: GABAPENTIN, METHOTREXATE, DULOXETINE, GLIPIZIDE, PIOGLITAZONE and ROSIGLITAZONE. PAST MEDICAL HISTORY: Significant for end-stage renal failure, on dialysis for the past 5 weeks, which, per patient, is secondary to diabetes. She has had diabetes for the last 30 years or so. She has hypertension and rheumatoid arthritis. She has a history of DVT development in the lower extremity approximately 7-8 months ago and is on Eliquis after right ankle fracture fixation PAST SURGICAL HISTORY: She has had multiple procedures to include cholecystectomy, appendectomy, open reduction and internal fixation of right ankle fracture and fistula placement, right total knee arthroplasty. SOCIAL HISTORY: She is a non-tobacco user. She has started dialysis just 5 weeks ago. She does live alone, but does have family in town. Her lives in [place]. REVIEW OF SYSTEMS: Other than mentioned above, 10-point review of systems negative. small draining wound lateral malleolus - pin hole - never been on antibiotics for it. PHYSICAL EXAMINATION: VITAL SIGNS: She is afebrile with a temperature 97.3, heart rate 60, blood pressure 100/59, saturating 96% on room air. GENERAL: She is alert, oriented and appropriate this morning. EXTREMITIES: On examination of the left hip, range of motion deferred secondary to known fracture. She is elevated on that side. Skin is intact. Foot is warm and perfused. No obvious deformity throughout the remainder of the extremity. IMAGING: She has plain radiographs, which were reviewed from outside facility demonstrates a displaced femoral neck fracture. ASSESSMENT AND PLAN: A 66-year-old female with multiple medical comorbidities that lend to increased complication and difficulty with the surgery itself. My recommendation for the fracture is hip hemiarthroplasty. I discussed what this entails with the patient today. This would allow for immediate weightbearing and mobilization as she is a community ambulator and does everything independently, prior to this. I discussed that there was a bit higher risk for infection as well as wound complications and delayed healing. She understands but wants to proceed in this fashion. Given the Eliquis, we will have to wait until tomorrow to proceed with surgery, which would be a left hip hemiarthroplasty. Until then, she is nonweightbearing, oral pain meds. DLW:pricilla Job ID: [id number] Doc ID: [id number] Jocelin Lizarraga MD MTDD
[2022-03-22] MEDS: DOCUSATE SODIUM 100 MG CAPSULE PO SCH ×2 (10:55→21:57)
--- NOTE | 2022-03-22 11:47 | Internal Med History&Physical ---
HPI History of Present Illness Patient information: Note initiated : 03/22/22 at 11:35 am Service Date, if different from initiated Date: [] Patient: Margarita French a 66 y/o F admitted on 03/21/22 for Left Hip FX, . Chief Complaint: [Fall] Chief complaint: GLF History of present illness: Ms. French is a 66 year old F with a complex past medical history significant for diabetes mellitus type 2, hypertension, hyperlipidemia, rheumatoid arthritis, and ESRD on HD who presented to outside hospital with severe left hip pain. The patient states that she is mainly wheelchair dependent. She normally sleeps in her living room as there is a recliner and she is able to keep her feet elevated. It was approximately 2 AM, when she was attempting to transfer to her wheelchair she needed to go to the restroom however ended up having a ground-level fall. The patient does not have a medical alert bracelet and lives alone. She called her daughter who came over and her grandson. He was able to put her back in bed. She remained at home for nearly 24 hours and did not realize that her hip was fractured. She continued to experience significant pain and that is when she decided to call EMS the following day. She initially presented to [facility] ER however they were unable to accommodate her dialysis needs and recommended transfer to our facility. Nephrology accepted. Orthopedic surgery accepted as well. The patient normally undergoes HD Sunday, and Saturdays. She missed hemodialysis yesterday. The hospital service was asked admit the patient for further management and evaluation of her medical comorbidities. Of note, the patient states that she has been on hemodialysis for approximately 6 weeks now and has a tunneled cath. She does have an AV fistula that has been created however it has not matured yet. Review of Systems All systems: reviewed and no additional remarkable complaints except as stated Constitutional Constitutional: Present as per HPI EENT Eyes: Present as per HPI; Absent blurry vision Cardiovascular Cardiovascular: Present as per HPI; Absent chest pain, dyspnea, dyspnea on exertion, leg edema or palpatations Respiratory Respiratory: Present as per HPI; Absent cough, dyspnea, dyspnea on exertion, wheezing or stridor Gastrointestinal Gastrointestinal: Present as per HPI; Absent abdominal pain, diarrhea, dysphagia, hematemesis, melena, nausea or vomiting Musculoskeletal Musculoskeletal: Present as per HPI; Absent joint swelling, limited range of motion, muscle cramps, muscle weakness or myalgias Integumentary Integumentary: Present as per HPI; Absent erythema, new lesions, rash or wounds Neurological Neurological: Present as per HPI; Absent abnormal gait, behavioral changes, focal weakness, headache(s), loss of vision, numbness, sensory deficit or syncope Endocrine Endocrine: Absent change in body appearance, fatigue or heat intolerance Hematologic/Lymphatic Hematologic/Lymphatic: Present as per HPI PFSH PFSH All Active Problems (Updated 03/22/22 @ 06:13 by Jennifer Lopez MD) ESRD on hemodialysis (Chronic) Rheumatoid arthritis (Chronic) Pain, joint, multiple sites (Chronic) Osteophyte of foot (Chronic) Osteoarthritis (Chronic) Diabetes mellitus, type II (Chronic) Hyperlipidemia (Chronic) Hypertension, essential (Chronic) History of cholecystectomy (Chronic ~1988) History of appendectomy (Chronic ~1988) History of orthopedic surgery (Chronic) Fibromyalgia (Chronic) Encounter for long-term (current) use of other high-risk medications (Chronic) Right knee pain (Chronic) Paresthesia of both hands (Chronic) Compression fracture of body of thoracic vertebra (Chronic) Osteoporosis (Chronic) Encounter for long-term current use of other high-risk medications (Chronic) Hx of total knee arthroplasty (Chronic 08/23/15) Change in mental status (Chronic) Early cataracts, bilateral (Chronic) Microalbuminuria (Chronic) Diabetes mellitus with retinopathy (Chronic) Cotton wool spots (Chronic) Perimenopause (Chronic) Chronic kidney disease, stage I (Chronic) Adenomatous colon polyp (Chronic) Obesity (Chronic) Right wrist sprain (Chronic) Vitamin B12 deficiency (non anemic) (Chronic) Proteinuria (Chronic) Constipation (Chronic) Bakers cyst (Chronic) Knee pain (Chronic) Vitamin D deficiency (Chronic) Backache (Chronic) Chronic pain (Chronic) Adjustment disorder (Chronic) Diabetes mellitus (Chronic) Adjustment disorder with depressed mood (Chronic) Primary fibromyalgia syndrome (Chronic) Malaise and fatigue (Chronic) Abnormal liver enzymes (Chronic) Alopecia areata (Chronic) Acute UTI (Chronic) Diarrhea (Chronic) Edema (Chronic) Influenza (Chronic) Pain (Chronic) Diabetic peripheral neuropathy associated with type 2 diabetes mellitus (Chronic) Proliferative diabetic retinopathy associated with type 2 diabetes mellitus (Chronic) Depression (Chronic) Family history of breast cancer (Chronic) Hiatal hernia (Chronic ~1988) History of ectopic (Chronic ~1986) Opioid dependence (Chronic) Major depression, recurrent, chronic (Chronic) PTSD (post-traumatic stress disorder) (Chronic) Stage 3 chronic kidney disease (Acute) CKD (chronic kidney disease) stage 5, GFR less than 15 ml/min (Acute) Hypertensive urgency (Acute) Hypoglycemia (Acute) Acute renal failure superimposed on stage 4 chronic kidney disease (Acute) Metabolic acidosis (Acute) CKD stage G4/A3, GFR 15-29 and albumin creatinine ratio >300 mg/g (Acute) Constipation due to pain medication therapy (Acute) Acquired autoimmune hypothyroidism (Acute) Nephrotic range proteinuria (Acute) CKD stage G5/A3, GFR <15 and albumin creatinine ratio >300 mg/g (Chronic) Eosinophilia (Acute) Anemia due to chronic kidney disease (Acute) Secondary hyperparathyroidism of renal origin (Acute) Type 2 DM with CKD stage 5 and hypertension (Acute) Pre-op evaluation (Acute) Mild protein-calorie malnutrition (Chronic) Anemia due to stage 5 chronic kidney disease (Acute) Hyperlipidemia associated with type 2 diabetes mellitus (Acute) Medical History (Updated 03/22/22 @ 06:13 by Jennifer Lopez MD) Abnormal liver enzymes Acute UTI Adenomatous colon polyp Adjustment disorder Adjustment disorder with depressed mood Alopecia areata Backache Bakers cyst Change in mental status Chronic kidney disease, stage I Chronic pain Compression fracture of body of thoracic vertebra Constipation Cotton wool spots OU Depression Diabetes mellitus Diabetes mellitus with retinopathy Diabetes mellitus, type II Diabetic peripheral neuropathy associated with type 2 diabetes mellitus Diarrhea Early cataracts, bilateral Edema Encounter for long-term (current) use of other high-risk medications Encounter for long-term current use of other high-risk medications Family history of breast cancer Fibromyalgia Hiatal hernia (~1988) History of ectopic (~1986) Hyperlipidemia Hypertension, essential Influenza Knee pain Major depression, recurrent, chronic Malaise and fatigue Microalbuminuria Obesity Opioid dependence Osteoarthritis Osteophyte of foot Involving the head of the left second metacarpal Osteoporosis Pain Pain, joint, multiple sites Paresthesia of both hands Perimenopause Primary fibromyalgia syndrome Proliferative diabetic retinopathy associated with type 2 diabetes mellitus Proteinuria PTSD (post-traumatic stress disorder) Rheumatoid arthritis Right knee pain Right wrist sprain Stage 3 chronic kidney disease Vitamin B12 deficiency (non anemic) Vitamin D deficiency Surgical History (Updated 10/27/20 @ 13:56 by Jenny Granados) History of appendectomy (~1988) History of arthroscopy of knee (06/06/13) History of cholecystectomy (~1988) History of colonoscopy (04/26/07) History of herniorrhaphy Hiatal History of orthopedic surgery History of salpingectomy (~1986) Right due to ectopic History of tonsillectomy (~1966) History of tooth extraction Hx of total knee arthroplasty (08/23/15) Status post cataract extraction and insertion of intraocular lens (05/01/12) Status post laser cataract surgery (05/15/12) Family History Unknown Arthritis Mother Malignant neoplasm Father Type 2 diabetes mellitus Grandmother Breast cancer Maternal Maternal Social History (Updated 10/27/20 @ 13:58 by Jenny Granados) adopted: No caregiver/support person: No foster care: No household members: family housing: house lives independently: No marital status: occupational status: unemployed and disabled occupational exposures/hazards: No smoking status: Former smoker alcohol intake frequency: does not drink substance use type: does not use additional history: Quit smoking in 2019. MEDS/ALLERGIES Home Medications and Allergies Home Medications Medication Instructions Recorded Confirmed Type pen needle, diabetic ##1 08/15/17 02/08/22 History flash glucose scanning reader 11/06/20 03/21/22 History ([employer] 14 Day [place]) apixaban 2.5 mg tablet (Eliquis) 2.5 mg PO DAILY 10/20/21 03/21/22 History insulin lispro 100 unit/mL See Protocol subcut ACHS 10/20/21 03/21/22 History subcutaneous solution (Admelog U-100 Insulin lispro) losartan 25 mg tablet 25 mg PO QDAY 10/20/21 03/21/22 History atorvastatin 20 mg tablet 20 mg PO QHS DM and high 02/08/22 03/21/22 Rx cholesterol #30 tabs Allergies Allergy/AdvReac Type Severity Reaction Status Date / Time gabapentin Allergy Intermediate Hives Verified 02/08/22 09:15 methotrexate Allergy Intermediate Hives Verified 02/08/22 09:15 duloxetine Allergy Unknown Unknown Verified 02/08/22 09:15 glipizide Allergy Unknown Unknown Verified 02/08/22 09:15 pioglitazone [From Actos] Allergy Unknown Unknown Verified 02/08/22 09:15 Rosiglitazone [From Avandia] Allergy Unknown Unknown Verified 02/08/22 09:15 EXAM Constitutional Vitals: Temp Pulse Resp BP Pulse Ox O2 Del Method 97.1 F 69 12 147/87 90 Room Air 03/22/22 11:20 03/22/22 11:20 03/22/22 07:13 03/22/22 11:20 03/22/22 07:13 03/22/22 07:13 General appearance: average body habitus Head Head exam: Present atraumatic, normal inspection and normocephalic Eye Eye exam: Present EOMI, normal appearance and PERRL; Absent conjunctival injection ENT ENT exam: Present normal exam; Absent mucous membranes dry Neck Neck exam: Present full ROM; Absent lymphadenopathy Respiratory Respiratory exam: Present normal respiratory exam and CTAB; Absent decreased breath sounds, respiratory distress or wheezes Cardiovascular Cardiovascular exam: Present normal rate and rhythm and RRR; Absent JVD GI/Abdominal GI/Abdominal exam: Present normal bowel sounds and soft; Absent diminished bowel sounds, distended, guarding, mass, rebound or tenderness Neurological Exam Neurological exam: Present alert, CN II-XII intact and oriented X3 Psychiatric Psychiatric exam: Present normal affect and normal mood Skin Skin exam: Present intact and warm; Absent erythema, pallor, petechiae or rash DATA Data Completed and Pending Labs: Labs from last 24 hours 03/22/22 03/22/22 05:28 05:28 WBC 7.5 RBC 3.38 L Hgb 9.7 L Hct 31.1 L MCV 92.0 MCH 28.7 MCHC 31.2 RDW 19.0 H Plt Count 132 L MPV 9.8 Immature Gran % (Auto) 0.3 Neut % (Auto) 82.3 H Lymph % (Auto) 9.3 L Z[place]ata % (Auto) 5.8 Eos % (Auto) 1.9 Baso % (Auto) 0.4 Lymph # (Auto) 0.69 L [place] # (Auto) 0.43 Eos # (Auto) 0.14 Baso # (Auto) 0.03 Immature Gran # 0.02 Absolute Neutrophils 6.14 Sodium 130 L Potassium 4.4 Chloride 96 Carbon Dioxide 24 Anion Gap 10.0 BUN 30 H Creatinine 4.4 H GFR Calculation 10 Glucose 118 H Calcium 8.1 L A/P Assessment and plan (1) ESRD on hemodialysis: Status: Chronic (2) Rheumatoid arthritis: Status: Chronic Qualifiers: Rheumatoid arthritis location: multiple sites Rheumatoid factor presence: with rheumatoid factor Qualified Code(s): M05.79 - Rheumatoid arthritis with rheumatoid factor of multiple sites without organ or systems involvement (3) Diabetes mellitus, type II: Status: Chronic (4) Hypertension, essential: Status: Chronic (5) Hyperlipidemia: Status: Chronic (6) Osteoporosis: Status: Chronic Narrative A/P Narrative: We will continue to manage the patient's medical comorbidities. She is undergoing hemodialysis today per nephrology. Her Eliquis is being held for 48 hours. She is scheduled for orthopedic surgery tomorrow. She will be made n.p.o. after midnight. Medication reconciliation is pending. Time Spent With Patient Time: Total time spent is greater than 50% in coordination of care (as documented) at patient's floor/unit and/or counseling patient: Initial: Total time with patient: 75 - 90 minutes
[2022-03-22] MEDS: INSULIN LISPRO 1 UNIT/0.01 ML UNIT SQ SCH ×3 (12:32→21:55)
[2022-03-22] MEDS: SENNOSIDES 1 TABLET PO SCH (21:57)
[2022-03-23] MEDS: HYDROcodone/APAP 5/325MG TABLET PO PRN (02:19)
[2022-03-23] MEDS: 0.9 % SODIUM CHLORIDE 10 ML SYRINGE IV SCH ×3 (05:34→22:45)
--- NOTE | 2022-03-23 07:24 | Nephrology Progress Note ---
SUBJECTIVE Subjective Patient information: Note initiated : 03/23/22 at 7:23 am Patient: Margarita French a 66 y/o F admitted on 03/21/22 for Left Hemiarthroplasty Hip. Chief Complaint: Hip fracture Pertinent ROS: Weakness No edema Constitutional Vitals: Vital Signs Temp Pulse Resp BP Pulse Ox O2 Del Method 98.6 F 68 18 109/61 97 Room Air 03/23/22 07:05 03/23/22 07:05 03/23/22 07:05 03/23/22 07:05 03/23/22 07:05 03/23/22 07:05 Period Temp Pulse Resp BP Sys/Beck Pulse Ox O2 Del Method O2 Flow Rate Last 24 Hr 96.5 F-98.6 F 68-80 14-20 105-158/61-98 90-97 Room Air-Room Air Intake and Output 03/22/22 03/23/22 03/23/22 19:59 03:59 11:59 Intake Total 800 Output Total 0 225 Balance 800 -225 Weight 179 lb 178 lb 9.6 oz Intake & Output: Intake & Output 03/22/22 03/23/22 03/23/22 19:59 03:59 11:59 Intake Total 800 Output Total 0 225 Balance 800 -225 Weight 179 lb 178 lb 9.6 oz Intake: Oral 800 Output: Urine Catheter Amount 225 Hemodialysis UF 0 Other: Meal Lunch Dinner Percent of Meal Consumed 100% 50% Feeding Ability Independent Urine Appearance Cloudy Uretheral (Alvarez) Cloudy Urine Color Yellow Uretheral (Alvarez) Dark Yellow Urine Odor Uretheral (Alvarez) Normal General appearance: cooperative and no acute distress Head Head exam: Present normal inspection Eye Eye exam: Present normal appearance ENT ENT exam: Present mucous membranes moist Respiratory Respiratory exam: Absent respiratory distress Cardiovascular Cardiovascular exam: Present normal rate and rhythm GI/Abdominal GI/Abdominal exam: Present soft; Absent tenderness Extremities Exam Extremities exam: Absent joint swelling or pedal edema Neurological Exam Neurological exam: Present alert and oriented X3 Psychiatric Psychiatric exam: Present normal affect and normal mood Skin Skin exam: Present warm; Absent rash A/P Assessment and plan (1) ESRD on hemodialysis: Assessment and plan: Margarita French is a 66-year-old female with end stage renal disease on hemodialysis, chronic anemia due to ESRD, hypertension, diabetes mellitus type 2, rheumatoid arthritis, history of DVT on Apixaban, peripheral artery disease s/p stenting transferred from [facility] for hip fracture. Nephrology consultation was requested for end stage renal disease. End stage renal disease on hemodialysis on TTS at [facility], followed by Dr. Connor. Right IJ tunneled hemodialysis catheter. Left arm AV fistula placement on 07/14/21, not being used yet, but has good thrill. Chronic anemia due to ESRD. No fluid overload. Progress: Hemodialysis on 03/22/22 for 3 hours without heparin. Recommendations/Plan: NSAIDs discontinued to prevent TIMMY of residual kidney function. Next hemodialysis on Sunday. There is no inpatient hemodialysis on Sunday. Status: Chronic Time Spent With Patient Time: Total time spent is greater than 50% in coordination of care (as documented) at patient's floor/unit and/or counseling patient:
[2022-03-23] MEDS: DOCUSATE SODIUM 100 MG CAPSULE PO SCH ×2 (08:24→22:09)
[2022-03-23] MEDS: INSULIN LISPRO 1 UNIT/0.01 ML UNIT SQ SCH ×4 (09:04→20:32)
--- NOTE | 2022-03-23 12:28 | Internal Med Progress Note ---
SUBJECTIVE Subjective Patient information: Note initiated : 03/23/22 at 12:23 pm Service Date, if different from initiated Date: [] Patient: Margarita French 66 y/o F admitted on 03/21/22 for Left Hemiarthroplasty Hip. Chief Complaint: [Fall] Principal diagnosis: Left hip fracture Interval history: The patient was resting comfortably in bed. She underwent hemodialysis yesterday. She has no other complaints or concerns. Her was present at the bedside to discuss plan of care. She is scheduled to go to the OR this afternoon. Constitutional Vitals: Vital Signs Temp Pulse Resp BP Pulse Ox O2 Del Method 98.6 F 68 18 109/61 97 Room Air 03/23/22 07:05 03/23/22 07:05 03/23/22 07:05 03/23/22 07:05 03/23/22 07:05 03/23/22 07:05 Period Temp Pulse Resp BP Sys/Beck Pulse Ox O2 Del Method O2 Flow Rate Last 24 Hr 96.5 F-98.6 F 68-80 18-20 105-158/61-98 90-97 Room Air-Room Air Intake and Output 03/23/22 03/23/22 03/23/22 03:59 11:59 19:59 Output Total 225 Balance -225 Weight 81.012 kg Intake & Output: Intake & Output 03/23/22 03/23/22 03/23/22 03:59 11:59 19:59 Output Total 225 Balance -225 Weight 81.012 kg Output: Urine Catheter Amount 225 Other: Meal Dinner Percent of Meal Consumed 50% Feeding Ability Independent Urine Appearance Cloudy Uretheral (Alvarez) Cloudy Urine Color Yellow Uretheral (Alvarez) Dark Yellow Dark Yellow Urine Odor Uretheral (Alvarez) Normal Head Head exam: Present atraumatic and normal inspection Eye Eye exam: Present normal appearance ENT ENT exam: Present mucous membranes moist, normal exam and normal external ear exam Neck Neck exam: Present normal inspection Respiratory Respiratory exam: Present normal respiratory exam Cardiovascular Cardiovascular exam: Present normal rate and rhythm GI/Abdominal GI/Abdominal exam: Present normal bowel sounds Back Exam Back exam: Present normal inspection Neurological Exam Neurological exam: Present alert and oriented X3 Skin Skin exam: Present intact and warm OBJ DATA Labs 03/22/22 05:28 03/22/22 05:28 Labs: Abnormal Lab Results 03/22/22 03/22/22 05:28 05:28 RBC 3.38 L Hgb 9.7 L Hct 31.1 L RDW 19.0 H Plt Count 132 L Neut % (Auto) 82.3 H Lymph % (Auto) 9.3 L Lymph # (Auto) 0.69 L Sodium 130 L BUN 30 H Creatinine 4.4 H Glucose 118 H Calcium 8.1 L Meds: Medications Acetaminophen (Acetaminophen 325 Mg Tablet) 650 mg PO Q6HP PRN; Protocol PRN Reason: Per Pain Protocol/Fever > 101 Hydrocodone Bitart/Acetaminophen (Hydrocodone/Apap 5/325mg Tablet) 1 tab PO Q4HP PRN; Protocol PRN Reason: Per Pain Protocol Last Admin: 03/23/22 02:19 Dose: 1 tab Albuterol/Ipratropium (Ipratropium/Albuterol 3 Ml Ampul.Neb) 3 ml NEB ONCE PRN PRN Reason: Shortness Of Breath Stop: 03/23/22 23:59 Dextrose (Dextrose 50% 50 Ml Vial) 0 ml IV UD PRN PRN Reason: Per Sliding Scale Diagnostic Test (Pha) (Accu-Chek 1 Each Strip) 1 each FS [facility] Last Admin: 03/23/22 11:20 Dose: 1 each Docusate Sodium (Docusate Sodium 100 Mg Capsule) 100 mg PO BID [facility] Last Admin: 03/23/22 08:24 Dose: Not Given Glucose (Dextrose 31 Gm Oral.Susp) 15 gm PO PRN PRN PRN Reason: Hypoglycemia Insulin Human Lispro (Insulin Lispro 1 Unit/0.01 Ml Unit) 0 unit SQ [facility]; Protocol Last Admin: 03/23/22 11:20 Dose: Not Given Ondansetron HCl (Ondansetron 4 Mg/2 Ml Vial) 4 mg IV Q6HP PRN PRN Reason: Nausea And Vomiting Scopolamine (Scopolamine 1 Patch Patch) 1 patch TOPICAL PREOP PRN PRN Reason: Nausea And Vomiting Stop: 03/23/22 23:59 Senna (Sennosides 1 Tablet) 2 tab PO HS [facility] Last Admin: 03/22/22 21:57 Dose: 2 tab Sodium Chloride (0.9 % Sodium Chloride 10 Ml Syringe) 10 ml IV Q8 [facility] Last Admin: 03/23/22 05:34 Dose: 10 ml A/P Assessment and plan (1) ESRD on hemodialysis: Status: Chronic (2) Rheumatoid arthritis: Status: Chronic Qualifiers: Rheumatoid arthritis location: multiple sites Rheumatoid factor presence: with rheumatoid factor Qualified Code(s): M05.79 - Rheumatoid arthritis with rheumatoid factor of multiple sites without organ or systems inv olvement (3) Diabetes mellitus, type II: Status: Chronic (4) Hypertension, essential: Status: Chronic (5) Hyperlipidemia: Status: Chronic (6) Osteoporosis: Status: Chronic Narrative A/P Narrative: We will continue to manage the patient's medical comorbidities. She is undergoing hemodialysis today per nephrology. Her Eliquis is being held for 48 hours. She is scheduled for orthopedic surgery tomorrow. She will be made n.p.o. after midnight. Medication reconciliation is pending. 03/23: The patient will be taken to the OR today. Postop management per orthop edic surgery. We will also restart her Eliquis 24 hours postop. She is scheduled for hemodialysis tomorrow from my understanding. PT and OT will work with her regarding disposition planning. Time Spent With Patient Time: Total time spent is greater than 50% in coordination of care (as documented) at patient's floor/unit and/or counseling patient: Subsequent: Total time with patient: 25 - 34 minutes
[2022-03-23] MEDS ORDERED: fentaNYL 100 MCG/2 ML VIAL IV ONE (13:42)
[2022-03-23] MEDS ORDERED: ONDANSETRON 4 MG/2 ML VIAL ONE (13:42)
[2022-03-23] MEDS ORDERED: PROPOFOL 200 MG/20 ML VIAL IV ONE (13:42)
[2022-03-23] MEDS ORDERED: LIDOCAINE HCL/PF 100 MG/5 ML SYRINGE IV ONE (13:42)
[2022-03-23] MEDS ORDERED: SUGAMMADEX SODIUM 200 MG/2 ML VIAL IV ONE (13:42)
[2022-03-23] MEDS ORDERED: MAGNESIUM SULFATE 2 GM/50 ML BAG IV ONE (13:42)
[2022-03-23] MEDS ORDERED: ROCURONIUM 10 MG/ML ML IV ONE (13:42)
[2022-03-23] MEDS ORDERED: IPRATROPIUM/ALBUTEROL 3 ML AMPUL.NEB NEB PRN ×2 (13:45→14:50)
[2022-03-23] MEDS ORDERED: ceFAZolin 2 GM in DEXTROSE 5% IN WATER 50 ML IV SCH (13:45)
[2022-03-23] MEDS ORDERED: SCOPOLAMINE 1 PATCH PATCH TOPICAL PRN (13:45)
[2022-03-23] MEDS ORDERED: MEPERIDINE 25 MG/ML VIAL IV PRN (14:50)
[2022-03-23] MEDS ORDERED: NALOXONE HCL 0.4 MG/ML VIAL IV PRN (14:50)
[2022-03-23] MEDS ORDERED: PROMETHAZINE 25 MG/ML VIAL IV PRN (14:50)
[2022-03-23] MEDS ORDERED: METHOCARBAMOL 1,000 MG/10 ML VIAL IV PRN (14:50)
[2022-03-23] MEDS ORDERED: ONDANSETRON 4 MG/2 ML VIAL IV PRN (14:50)
[2022-03-23] MEDS ORDERED: diphenhydrAMINE 50 MG/ML VIAL IV PRN (14:50)
[2022-03-23] MEDS ORDERED: ACETAMINOPHEN 1,000 MG/100 ML BAG IV ONE (14:50)
[2022-03-23] MEDS ORDERED: LACTATED RINGERS 1,000 ML IV SCH (15:00)
[2022-03-23] MEDS ORDERED: VANCOMYCIN 1 GM VIAL TOPICAL SCH (15:15)
--- NOTE | 2022-03-23 15:16 | Brief Operative Note ---
Brief Operative Note Date of procedure: 03/23/22 Pre-op diagnosis: let displaced femoral neck fracture Post-op diagnosis: same Procedure: left cemented ken hip arthroplasty Grafts/Implants: Yes Anesthesia: GETA Findings: displaced fracture Complications: none Surgeon: Jocelin Lizarraga [employer] Worker: Sarthak Tiwari Estimated blood loss (cc): 50 Tourniquet Time (Minutes): 0 Specimens Removed/Pathology: none sent Condition: stable Disposition: PACU
[2022-03-23] MEDS: fentaNYL 100 MCG/2 ML VIAL IV PRN ×4 (16:00→16:17)
--- NOTE | 2022-03-23 16:24 | XRay Report ---
CLINICAL INFORMATION: Left hip prostheses COMPARISON: None. FINDINGS: Left hip prostheses is anatomically aligned. No osseous abnormalities. Right hip and both SI joints are normal. Soft tissue swelling over the surgical site. IMPRESSION: Left hip prostheses in anatomic alignment Interpreted and Authenticated by: Rasheed Earl 03/23/22
--- NOTE | 2022-03-23 16:31 | Operative Note ---
DATE OF OPERATION: 03/23/2022 PREOPERATIVE DIAGNOSIS: Left displaced femoral neck fracture. POSTOPERATIVE DIAGNOSIS: Left displaced femoral neck fracture. PROCEDURE PERFORMED: Left hip hemiarthroplasty, cemented. SURGEON: Jocelin Lizarraga M.D. AERIAL APPLICATOR PILOT: Sarthak Tiwari PA-C. The PA's assistance was required for the safe and efficient completion of the entire case. This provider's expertise and technical skill were required throughout the case. The PA assisted with preoperative coordination, intraoperative retraction, wound closure, dressing and splint application, as well as postoperative documentation and care coordination. ANESTHESIA: General. IV FLUIDS: 300 mL. ESTIMATED BLOOD LOSS: Less than 100 mL. TOURNIQUET TIME: Not applicable. ANTIBIOTICS: 2 grams Ancef. IMPLANTS: A DePuy cemented 7 Clio stem, standard neck, 49 mm head ball +5 insert. INTRAOPERATIVE COMPLICATIONS: None apparent. PATHOLOGY/LAB: None. INDICATIONS FOR PROCEDURE: The patient is a 66-year-old female who had a ground-level fall resulting in a displaced femoral neck fracture. She has been on dialysis and has been on Eliquis for AFib and subsequently she was transferred to [facility] given dialysis availability here. She has been off her Eliquis for the last 2 days and now wants to proceed with hemiarthroplasty to treat the femoral neck fracture. She has a baseline significant increased risk for complications of surgery including infection. I discussed and reviewed this with her. She understands and wished to proceed in this fashion. DESCRIPTION OF PROCEDURE: Patient was met in the preoperative holding area where site was verified and marked with the patient's input. She was then taken back to the operating room where she underwent successful general anesthesia. She was placed in lateral decubitus position, left side up, and her arm was in a cut out negating the need for an axillary roll. Left hip was then wiped down with chlorhexidine wipe. She was then prepped and draped in the usual sterile fashion with ChloraPrep. Surgical timeout was performed to verify patient's identity, correct procedure being performed, and correct extremity being operated on. Everybody was in agreement. Initial incision was made extending just distal to the greater trochanter posteriorly in an oblique fashion. The skin was sharply incised. Hemostasis was obtained with electrocautery device and then dissected down to the greater trochanter and the IT band distally and the fascia of the gluteus juana tendon proximally. This was incised and the muscle fibers were split and we placed a self-retaining retractor. We exposed the trochanteric bursa and this was excised. I elevated the posterior external rotators off of the femoral neck, which was abnormal as it appeared the femoral neck wasdislocated posteriorly more than typical. These were identified. The piriformis was identified and tagged. The capsule was identified and an inverted T-capsulotomy was created down the femoral neck and then back to the acetabulum. Care was taken not to injure the labrum. These were tagged with a #2 Ethibond. A femoral neck cut was then made with a Charnley retractor placed on the inferior neck. This was relatively low- fracture already and, thus, we just tapered it back to the shoulder of the neck to the greater trochanter. This was then removed. The femoral head was then removed in an atraumatic fashion and sized. The last size it would not fit through was a 49, and I elected to proceed with this sizing-daniel. At this point, I ensured all bony debris was removed from the joint itself. Utilizing the femoral neck elevator, I further exposed the femoral neck. Utilizing a boxing and pressing supervisor, canal finder, and lateralizer, we gained entry into the canal and broached up to a size 7 with good rotational control. However, given her underlying medical issues as well as bone quality, we elected to proceed with a cemented-type stem. A standard neck and head ball were placed. This overall felt like we restored the length. It was stable. However, with extreme adduction, internal rotation it did sublux posteriorly. She had a shallow acetabulum. Given that, I did go to a +5, which was overall much more stable. I calcar planed after removing the head and neck ball and dislocating the joint. The stem was removed. I pulse lavaged out the whole joint again with irrigation. I placed a sponge into the acetabulum to ensure no bony debris or cement would be trapped here. The cement restrictor was placed as measured off of the stem length for 2 cm past the tip. The canal was brushed, pulse lavaged and a dry suction tampon was placed into the canal while cement was being mixed. Once cement was mixed, I placed it into the canal. The cement was pressurized. The stem was then placed and held in place until the cement was hardened and ensured we were not in varus alignment. Once the cement hardened, I impacted the head ball with a +5 insert. The joint was reduced and overall stable and voodoo of her length. The wound again was copiously irrigated. We placed 1 gram vancomycin powder deep in the wound. The capsule was closed with #2 Ethibond in interrupted fashion. The self-retaining retractor was removed. We reapproximated the IT band and the fascia over the gluteus juana with #1 Vicryl in interrupted fashion and subsequently a Stratafix to overrun it. Again, the wound was copiously irrigated. I placed vancomycin powder in the wound and subcutaneous layer was closed in layered fashion with 2-0 Vicryl, 3-0 Vicryl, and ekesha for the skin. The hip was then cleaned and dried. We placed a silver dressing and an abduction pillow. The patient awoke from anesthesia and was transferred to PACU in stable condition. POSTOPERATIVE PLAN: The patient will be admitted back to floor for postoperative recovery. DLW:luis Job ID: [id number] Doc ID: [id number] Jocelin Lizarraga MD [facility]
[2022-03-23] MEDS: oxyCODONE HCL 5 MG TABLET PO PRN (19:55)
[2022-03-23] MEDS: METHOCARBAMOL 500 MG TABLET PO PRN (19:58)
[2022-03-23] MEDS: SENNOSIDES 1 TABLET PO SCH (22:06)
[2022-03-23] MEDS: ceFAZolin 1 GM VIAL IV SCH (22:45)
[2022-03-24] MEDS: ACETAMINOPHEN 500 MG TABLET PO SCH ×3 (00:56→15:06)
[2022-03-24] MEDS: oxyCODONE HCL 5 MG TABLET PO PRN ×3 (00:57→22:25)
[2022-03-24] MEDS: ceFAZolin 1 GM VIAL IV SCH (05:35)
[2022-03-24] MEDS: 0.9 % SODIUM CHLORIDE 10 ML SYRINGE IV SCH ×3 (05:36→21:31)
--- NOTE | 2022-03-24 07:14 | Nephrology Progress Note ---
SUBJECTIVE Subjective Patient information: Note initiated : 03/24/22 at 7:12 am Patient: Margarita French 66 y/o F admitted on 03/21/22 for Left Hemiarthroplasty Hip. Chief Complaint: Weakness Principal diagnosis: Left hip fracture Pertinent ROS: Weakness Constitutional Vitals: Vital Signs Temp Pulse Resp BP Pulse Ox O2 Del Method O2 Flow Rate 98.3 F 77 16 119/60 95 Nasal Cannula 1 03/24/22 04:00 03/24/22 04:00 03/24/22 04:00 03/24/22 04:00 03/24/22 04:53 03/24/22 06:45 03/24/22 06:45 Period Temp Pulse Resp BP Sys/Beck Pulse Ox O2 Del Method O2 Flow Rate Last 24 Hr 97.6 F-98.4 F 63-77 6-18 86-132/45-70 90-100 Nasal Cannula- Simple Mask 0-6 Intake and Output 03/23/22 03/24/22 03/24/22 19:59 03:59 11:59 Intake Total 600 240 Output Total 75 300 175 Balance 525 -300 65 Weight 182 lb 2 oz Intake & Output: Intake & Output 03/23/22 03/24/22 03/24/22 19:59 03:59 11:59 Intake Total 600 240 Output Total 75 300 175 Balance 525 -300 65 Weight 182 lb 2 oz Intake: IV 150 Ancef 2 gm In Dextrose 5% in 50 Water 50 ml @ 100 mls/hr IV PREOP [facility] Rx#:[id number] Oral 240 IV - Manual Only 450 Output: Urine Catheter Amount 300 Uretheral (Alvarez) 300 Void Amount 175 Estimated Blood Loss 75 Other: Urine Appearance Cloudy Cloudy Clear Uretheral (Alvarez) Cloudy Urine Color Yellow Yellow Yellow Uretheral (Alvarez) Yellow Urine Odor Normal General appearance: cooperative and no acute distress Head Head exam: Present normal inspection Eye Eye exam: Present normal appearance ENT ENT exam: Present mucous membranes moist Respiratory Respiratory exam: Absent respiratory distress Cardiovascular Cardiovascular exam: Present normal rate and rhythm GI/Abdominal GI/Abdominal exam: Present soft; Absent tenderness Extremities Exam Extremities exam: Absent joint swelling or pedal edema Neurological Exam Neurological exam: Present alert and oriented X3 Psychiatric Psychiatric exam: Present normal affect and normal mood Skin Skin exam: Present warm; Absent rash A/P Assessment and plan (1) ESRD on hemodialysis: Assessment and plan: Margarita French is a 66-year-old female with end stage renal disease on hemodialysis, chronic anemia due to ESRD, hypertension, diabetes mellitus type 2, rheumatoid arthritis, history of DVT on Apixaban, peripheral artery disease s/p stenting transferred from [facility] for hip fracture. Nephrology consultation was requested for end stage renal disease. End stage renal disease on hemodialysis on TTS at [facility], followed by Dr. Connor. Right IJ tunneled hemodialysis catheter. Left arm AV fistula placement on 07/14/21, not being used yet, but has good thrill. Chronic anemia due to ESRD. No fluid overload. Progress: Hemodialysis on 03/22/22 for 3 hours without heparin. Left cemented ken hip arthroplasty on 03/23/22. Recommendations/Plan: Hemodialysis today. NSAIDs discontinued to prevent TIMMY of residual kidney function. Next hemodialysis on Sunday or Sunday. There is no inpatient hemodialysis on Sunday or Sunday. Status: Chronic Time Spent With Patient Time: Total time spent is greater than 50% in coordination of care (as documented) at patient's floor/unit and/or counseling patient: Subsequent: Total time with patient: 25 - 34 minutes
--- NOTE | 2022-03-24 07:21 | Orthopedic Progress Note ---
SUBJECTIVE Subjective Patient information: Note initiated : 03/24/22 at 7:16 am Service Date, if different from initiated Date: [] Patient: Margarita French 66 y/o F admitted on 03/21/22 for Left Hemiarthroplasty Hip. Chief Complaint: [] Principal diagnosis: Left hip fracture Interval history: POD 1 s/p left hip hemiarthroplasty pain today but controlled with pain medicine, overall doing well but has some nausea intermittently, denies cough, SOB, GRECO, fever, or any other acute symptoms. Constitutional Vitals: Vital Signs Temp Pulse Resp BP Pulse Ox O2 Del Method O2 Flow Rate 98.3 F 77 16 119/60 95 Nasal Cannula 1 03/24/22 04:00 03/24/22 04:00 03/24/22 04:00 03/24/22 04:00 03/24/22 04:53 03/24/22 06:45 03/24/22 06:45 Period Temp Pulse Resp BP Sys/Beck Pulse Ox O2 Del Method O2 Flow Rate Last 24 Hr 97.6 F-98.4 F 63-77 6-18 86-132/45-70 90-100 Nasal Cannula- Simple Mask 0-6 Intake and Output 03/23/22 03/24/22 03/24/22 19:59 03:59 11:59 Intake Total 600 240 Output Total 75 300 175 Balance 525 -300 65 Weight 182 lb 2 oz Intake & Output: Intake & Output 03/23/22 03/24/22 03/24/22 19:59 03:59 11:59 Intake Total 600 240 Output Total 75 300 175 Balance 525 -300 65 Weight 182 lb 2 oz Intake: IV 150 Ancef 2 gm In Dextrose 5% in 50 Water 50 ml @ 100 mls/hr IV PREOP [facility] Rx#:[id number] Oral 240 IV - Manual Only 450 Output: Urine Catheter Amount 300 Uretheral (Alvarez) 300 Void Amount 175 Estimated Blood Loss 75 Other: Urine Appearance Cloudy Cloudy Clear Uretheral (Alvarez) Cloudy Urine Color Yellow Yellow Yellow Uretheral (Alvarez) Yellow Urine Odor Normal Additional findings Additional findings: exam of the left hip reveals dressings dry and in place, NVI in entire LLE, no calf tenderness OBJ DATA Labs 03/22/22 05:28 03/22/22 05:28 Labs: Abnormal Lab Results 03/22/22 03/22/22 05:28 05:28 RBC 3.38 L Hgb 9.7 L Hct 31.1 L RDW 19.0 H Plt Count 132 L Neut % (Auto) 82.3 H Lymph % (Auto) 9.3 L Lymph # (Auto) 0.69 L Sodium 130 L BUN 30 H Creatinine 4.4 H Glucose 118 H Calcium 8.1 L Meds: Medications Acetaminophen (Acetaminophen 500 Mg Tablet) 1,000 mg PO Q8H [facility]; Protocol Last Admin: 03/24/22 00:56 Dose: Not Given Apixaban (Apixaban 5 Mg Tablet) 2.5 mg PO BID [facility] Dextrose (Dextrose 50% 50 Ml Vial) 0 ml IV UD PRN PRN Reason: Per Sliding Scale Diagnostic Test (Pha) (Accu-Chek 1 Each Strip) 1 each FS [facility] Last Admin: 03/23/22 20:31 Dose: 1 each Docusate Sodium (Docusate Sodium 100 Mg Capsule) 100 mg PO BID [facility] Last Admin: 03/23/22 22:09 Dose: 100 mg Glucose (Dextrose 31 Gm Oral.Susp) 15 gm PO PRN PRN PRN Reason: Hypoglycemia Insulin Human Lispro (Insulin Lispro 1 Unit/0.01 Ml Unit) 0 unit SQ [facility]; Protocol Last Admin: 03/23/22 20:32 Dose: Not Given Methocarbamol (Methocarbamol 500 Mg Tablet) 500 mg PO TIDP PRN PRN Reason: Muscle Spasm Last Admin: 03/23/22 19:58 Dose: 500 mg Ondansetron HCl (Ondansetron 4 Mg/2 Ml Vial) 4 mg IV Q6HP PRN PRN Reason: Nausea And Vomiting Last Admin: 03/24/22 05:54 Dose: 4 mg Oxycodone HCl (Oxycodone Hcl 5 Mg Tablet) 0 mg PO Q4HP PRN; Protocol PRN Reason: Per Pain Protocol Last Admin: 03/24/22 00:57 Dose: 10 mg Senna (Sennosides 1 Tablet) 2 tab PO HS [facility] Last Admin: 03/23/22 22:06 Dose: 2 tab Sodium Chloride (0.9 % Sodium Chloride 10 Ml Syringe) 10 ml IV Q8 [facility] Last Admin: 03/24/22 05:36 Dose: 10 ml A/P Assessment and plan (1) History of hemiarthroplasty of left hip: Assessment and plan: 1. restart jeffery maher, continue current pain medicine protocol, PT daily limited as patient uses wheelchair at baseline, leave dressings in place x 2 weeks 2. posterior hip dislocation precautions x 6 weeks 3. plan discharge likely to SNF per hospitalist 4. Ortho to see patient tomorrow Status: Acute Time Spent With Patient Time: Total time spent is greater than 50% in coordination of care (as documented) at patient's floor/unit and/or counseling patient:
[2022-03-24] MEDS: HYDROcodone/APAP 5/325MG TABLET PO PRN (07:52)
[2022-03-24] MEDS: INSULIN LISPRO 1 UNIT/0.01 ML UNIT SQ SCH ×4 (07:57→21:33)
[2022-03-24] MEDS: DOCUSATE SODIUM 100 MG CAPSULE PO SCH ×2 (08:10→21:30)
[2022-03-24] MEDS: APIXABAN 5 MG TABLET PO SCH ×2 (08:10→21:31)
[2022-03-24 09:04] LABS: Basophils # (Auto) 0.03 K/mcL (0.00-0.30); Basophils % (Auto) 0.4 % (0.0-2.0); Eosinophils # (Auto) 0.18 K/mcL (0.00-0.70); Eosinophils % (Auto) 2.4 % (0.0-7.0); Hematocrit 31.4 % (34.1-44.9); Hemoglobin 9.9 g/dL (11.2-15.7); Lymphocytes # (Auto) 0.52 K/mcL (1.50-4.80); Mean Cell Volume 91.3 fL (80.0-100.0); Mean Corpuscular HGB Conc 31.5 g/dL (31.0-36.0); Mean Platelet Volume 10.2 fL (8.8-12.5); Monocytes # (Auto) 0.69 K/mcL (0.10-0.90); Monocytes % (Auto) 9.3 % (1.0-12.0); Neutrophils % (Auto) 80.5 % (38.0-78.0); Platelet Count 155 K/mcL (140-440); RBC 3.44 M/mcL (3.59-5.38); Red Cell Distribution Width 19.1 % (11.5-14.5); WBC 7.5 K/mcL (4.5-11.0)
[2022-03-24 09:20] LABS: Blood Urea Nitrogen 26 mg/dL (8-23); Calcium 7.8 mg/dL (8.6-10.4); Carbon Dioxide 26 mmol/L (22-30); Chloride 96 mmol/L (96-108); Glomerular Filtration Rate 13; Glucose 185 mg/dL (70-105)
--- NOTE | 2022-03-24 11:47 | Internal Med Progress Note ---
SUBJECTIVE Subjective Patient information: Note initiated : 03/24/22 at 11:46 am Service Date, if different from initiated Date: [] Patient: Margarita French 66 y/o F admitted on 03/21/22 for Left Hemiarthroplasty Hip. Chief Complaint: [Ground-level fall] Principal diagnosis: Left hip fracture Interval history: The patient was resting comfortably in bed. Discussed plan of care with her at the bedside. Constitutional Vitals: Vital Signs Temp Pulse Resp BP Pulse Ox O2 Del Method O2 Flow Rate 100.1 F H 77 20 111/61 99 Room Air 1 03/24/22 07:37 03/24/22 04:00 03/24/22 07:37 03/24/22 07:37 03/24/22 07:37 03/24/22 07:37 03/24/22 07:37 Period Temp Pulse Resp BP Sys/Beck Pulse Ox O2 Del Method O2 Flow Rate Last 24 Hr 97.6 F-100.1 F 63-77 6-20 86-132/45-70 90-100 Nasal Cannula- Simple Mask 0-6 Intake and Output 03/23/22 03/24/22 03/24/22 19:59 03:59 11:59 Intake Total 600 240 Output Total 75 300 175 Balance 525 -300 65 Weight 82.611 kg Intake & Output: Intake & Output 03/23/22 03/24/22 03/24/22 19:59 03:59 11:59 Intake Total 600 240 Output Total 75 300 175 Balance 525 -300 65 Weight 82.611 kg Intake: IV 150 Ancef 2 gm In Dextrose 5% in 50 Water 50 ml @ 100 mls/hr IV PREOP [facility] Rx#:[id number] Oral 240 IV - Manual Only 450 Output: Urine Catheter Amount 300 Uretheral (Alvarez) 300 Void Amount 175 Estimated Blood Loss 75 Other: Urine Appearance Cloudy Cloudy Clear Uretheral (Alvarez) Cloudy Urine Color Yellow Yellow Yellow Uretheral (Alvarez) Yellow Urine Odor Normal Head Head exam: Present atraumatic and normal inspection Eye Eye exam: Present normal appearance ENT ENT exam: Present mucous membranes moist, normal exam and normal external ear exam Neck Neck exam: Present normal inspection Respiratory Respiratory exam: Present normal respiratory exam Cardiovascular Cardiovascular exam: Present normal rate and rhythm GI/Abdominal GI/Abdominal exam: Present normal bowel sounds Back Exam Back exam: Present normal inspection Neurological Exam Neurological exam: Present alert and oriented X3 Skin Skin exam: Present intact and warm OBJ DATA Labs 03/24/22 08:17 03/24/22 08:17 Labs: Abnormal Lab Results 03/24/22 03/24/22 03/22/22 08:17 08:17 05:28 RBC 3.44 L Hgb 9.9 L Hct 31.4 L RDW 19.1 H Plt Count Neut % (Auto) 80.5 H Lymph % (Auto) 7.0 L Lymph # (Auto) 0.52 L Sodium 129 L 130 L Anion Gap 7.0 L BUN 26 H 30 H Creatinine 3.6 H 4.4 H Glucose 185 H 118 H Calcium 7.8 L 8.1 L 03/22/22 05:28 RBC 3.38 L Hgb 9.7 L Hct 31.1 L RDW 19.0 H Plt Count 132 L Neut % (Auto) 82.3 H Lymph % (Auto) 9.3 L Lymph # (Auto) 0.69 L Sodium Anion Gap BUN Creatinine Glucose Calcium Meds: Medications Acetaminophen (Acetaminophen 500 Mg Tablet) 1,000 mg PO Q8H [facility]; Protocol Last Admin: 03/24/22 08:04 Dose: Not Given Apixaban (Apixaban 5 Mg Tablet) 2.5 mg PO BID [facility] Last Admin: 03/24/22 08:10 Dose: 2.5 mg Dextrose (Dextrose 50% 50 Ml Vial) 0 ml IV UD PRN PRN Reason: Per Sliding Scale Diagnostic Test (Pha) (Accu-Chek 1 Each Strip) 1 each FS [facility] Last Admin: 03/24/22 07:53 Dose: 1 each Docusate Sodium (Docusate Sodium 100 Mg Capsule) 100 mg PO BID [facility] Last Admin: 03/24/22 08:10 Dose: 100 mg Glucose (Dextrose 31 Gm Oral.Susp) 15 gm PO PRN PRN PRN Reason: Hypoglycemia Insulin Human Lispro (Insulin Lispro 1 Unit/0.01 Ml Unit) 0 unit SQ [facility]; Protocol Last Admin: 03/24/22 07:57 Dose: 4 units Methocarbamol (Methocarbamol 500 Mg Tablet) 500 mg PO TIDP PRN PRN Reason: Muscle Spasm Last Admin: 03/23/22 19:58 Dose: 500 mg Ondansetron HCl (Ondansetron 4 Mg/2 Ml Vial) 4 mg IV Q6HP PRN PRN Reason: Nausea And Vomiting Last Admin: 03/24/22 05:54 Dose: 4 mg Oxycodone HCl (Oxycodone Hcl 5 Mg Tablet) 0 mg PO Q4HP PRN; Protocol PRN Reason: Per Pain Protocol Last Admin: 03/24/22 00:57 Dose: 10 mg Senna (Sennosides 1 Tablet) 2 tab PO HS [facility] Last Admin: 03/23/22 22:06 Dose: 2 tab Sodium Chloride (0.9 % Sodium Chloride 10 Ml Syringe) 10 ml IV Q8 [facility] Last Admin: 03/24/22 05:36 Dose: 10 ml A/P Assessment and plan (1) ESRD on hemodialysis: Status: Chronic (2) Rheumatoid arthritis: Status: Chronic Qualifiers: Rheumatoid arthritis location: multiple sites Rheumatoid factor presence: with rheumatoid factor Qualified Code(s): M05.79 - Rheumatoid arthritis with rheumatoid factor of multiple sites without organ or systems involvement (3) Diabetes mellitus, type II: Status: Chronic (4) Hypertension, essential: Status: Chronic (5) Hyperlipidemia: Status: Chronic (6) Osteoporosis: Status: Chronic Narrative A/P Narrative: We will continue to manage the patient's medical comorbidities. She is undergoing hemodialysis today per nephrology. Her Eliquis is being held for 48 hours. She is scheduled for orthopedic surgery tomorrow. She will be made n.p.o. after midnight. Medication reconciliation is pending. 03/23: The patient will be taken to the OR today. Postop management per orthopedic surgery. We will also restart her Eliquis 24 hours postop. She is scheduled for hemodialysis tomorrow from my understanding. PT and OT will work with her regarding disposition planning. 03/24: The patient will have her Eliquis restarted this evening. She will need to go to a fdc facility. Case management and social work will work on disposition. Time Spent With Patient Time: Total time spent is greater than 50% in coordination of care (as documented) at patient's floor/unit and/or counseling patient: Subsequent: Total time with patient: 25 - 34 minutes
--- NOTE | 2022-03-24 14:39 | EKG ---
[facility] Test Date: 2022-03-23 Pat Name: Margarita French Department: [facility] Room: 125 Gender: Female Animal Behaviorist: : 1955 Requested By: Juan Mareie Order Number: [id number] Reading MD: Rasheed Carney M.D. Measurements Intervals [place] Rate: 68 P: 45 PA: 192 QRS: 53 QRSD: 98 T: 196 QT: 440 QTc: 468 Interpretive Statements Sinus rhythm Anteroseptal infarct, old Nonspecific T abnormalities, lateral leads Electronically Signed On 03-24-2022 14:39:33 PST by Rasheed Carney M.D. /[email or web address]/[email or web address]/[id number]/[id number]
[2022-03-24] MEDS: METHOCARBAMOL 500 MG TABLET PO PRN ×2 (14:50→21:31)
[2022-03-24] MEDS: SENNOSIDES 1 TABLET PO SCH (21:30)
[2022-03-25] MEDS: ACETAMINOPHEN 500 MG TABLET PO SCH ×3 (01:13→16:30)
[2022-03-25] MEDS: oxyCODONE HCL 5 MG TABLET PO PRN ×3 (03:20→19:22)
[2022-03-25] MEDS: 0.9 % SODIUM CHLORIDE 10 ML SYRINGE IV SCH ×3 (05:49→22:10)
--- NOTE | 2022-03-25 06:58 | Orthopedic Progress Note ---
SUBJECTIVE Subjective Patient information: Note initiated : 03/25/22 at 6:54 am Service Date, if different from initiated Date: [] Patient: Margarita French 66 y/o F admitted on 03/21/22 for Left Hemiarthroplasty Hip. Chief Complaint: [Doing better today. yesterday had some spasms/shakes that lasted about 7 hours. Underwent HD yesterday as well. This morning pain controlled and doing better.] Principal diagnosis: Left hip fracture Constitutional Vitals: Vital Signs Temp Pulse Resp BP Pulse Ox O2 Del Method O2 Flow Rate 99.1 F H 77 18 106/56 95 Nasal Cannula 1 03/24/22 23:46 03/25/22 03:23 03/25/22 03:23 03/25/22 03:23 03/25/22 03:23 03/25/22 03:23 03/25/22 03:23 Period Temp Pulse Resp BP Sys/Beck Pulse Ox O2 Del Method O2 Flow Rate Last 24 Hr 96.6 F-100.1 F 74-82 16-20 96-136/48-77 93-99 Nasal Cannula- Room Air 1-1 Intake and Output 03/24/22 03/25/22 03/25/22 19:59 03:59 11:59 Intake Total 360 Output Total 0 250 Balance 360 -250 Weight 183 lb 8 oz Intake & Output: Intake & Output 03/24/22 03/25/22 03/25/22 19:59 03:59 11:59 Intake Total 360 Output Total 0 250 Balance 360 -250 Weight 183 lb 8 oz Intake: Oral 360 Output: Urine Catheter Amount 100 Uretheral (Alvarez) 100 Void Amount 150 Hemodialysis UF 0 Other: Urine Appearance Clear Uretheral (Alvarez) Clear Urine Color Yellow Uretheral (Alvarez) Yellow Urine Odor Normal Uretheral (Alvarez) Normal Additional findings Additional findings: sleeping but easily arousable, appropriate and oriented left hip: dressing clean dry and intact. foot warm well perfused, abduction pillow in place OBJ DATA Labs 03/24/22 08:17 03/24/22 08:17 Labs: Abnormal Lab Results 03/24/22 03/24/22 08:17 08:17 RBC 3.44 L Hgb 9.9 L Hct 31.4 L RDW 19.1 H Neut % (Auto) 80.5 H Lymph % (Auto) 7.0 L Lymph # (Auto) 0.52 L Sodium 129 L Anion Gap 7.0 L BUN 26 H Creatinine 3.6 H Glucose 185 H Calcium 7.8 L Meds: Medications Acetaminophen (Acetaminophen 500 Mg Tablet) 1,000 mg PO Q8H [facility]; Protocol Last Admin: 03/25/22 01:13 Dose: Not Given Apixaban (Apixaban 5 Mg Tablet) 2.5 mg PO BID [facility] Last Admin: 03/24/22 21:31 Dose: 2.5 mg Dextrose (Dextrose 50% 50 Ml Vial) 0 ml IV UD PRN PRN Reason: Per Sliding Scale Diagnostic Test (Pha) (Accu-Chek 1 Each Strip) [address] [facility] Last Admin: 03/24/22 21:08 Dose: 1 each Docusate Sodium (Docusate Sodium 100 Mg Capsule) 100 mg PO BID [facility] Last Admin: 03/24/22 21:30 Dose: 100 mg Glucose (Dextrose 31 Gm Oral.Susp) 15 gm PO PRN PRN PRN Reason: Hypoglycemia Insulin Human Lispro (Insulin Lispro 1 Unit/0.01 Ml Unit) 0 unit SQ [facility]; Protocol Last Admin: 03/24/22 21:33 Dose: 2 units Methocarbamol (Methocarbamol 500 Mg Tablet) 500 mg PO TIDP PRN PRN Reason: Muscle Spasm Last Admin: 03/24/22 21:31 Dose: 500 mg Ondansetron HCl (Ondansetron 4 Mg/2 Ml Vial) 4 mg IV Q6HP PRN PRN Reason: Nausea And Vomiting Last Admin: 03/24/22 05:54 Dose: 4 mg Oxycodone HCl (Oxycodone Hcl 5 Mg Tablet) 0 mg PO Q4HP PRN; Protocol PRN Reason: Per Pain Protocol Last Admin: 03/25/22 03:20 Dose: 10 mg Senna (Sennosides 1 Tablet) 2 tab PO HS [facility] Last Admin: 03/24/22 21:30 Dose: 2 tab Sodium Chloride (0.9 % Sodium Chloride 10 Ml Syringe) 10 ml IV Q8 [facility] Last Admin: 03/25/22 05:49 Dose: 10 ml A/P Assessment and plan (1) History of hemiarthroplasty of left hip: Assessment and plan: POD 2 s/p left ken hip arthroplasty for displaced femoral neck fracture -- weight bearing as tolerated with posterior hip precautions x6 weeks ----pt/o but baseline does not walk very much, typically wheelchair/couch/bed -- if no need from Hospitalist or Nephrology would recommend d/c neil -----can have bedside commode or depends -- oral pain meds -- prophy: eliquis restarted yesterday, IS, foot pumps -- Dispo: rehab. OK to d/c from ortho standpoint. D/c meds in chart, f/u recs in chart, d/c instructions in chart. Status: Acute Time Spent With Patient Time: Total time spent is greater than 50% in coordination of care (as documented) at patient's floor/unit and/or counseling patient:
[2022-03-25] MEDS: INSULIN LISPRO 1 UNIT/0.01 ML UNIT SQ SCH ×4 (07:15→20:49)
--- NOTE | 2022-03-25 07:45 | Nephrology Progress Note ---
SUBJECTIVE Subjective Patient information: Note initiated : 03/25/22 at 7:42 am Patient: Margarita French a 66 y/o F admitted on 03/21/22 for Left Hemiarthroplasty Hip. Chief Complaint: Weakness Principal diagnosis: Left hip fracture Pertinent ROS: Weakness Constitutional Vitals: Vital Signs Temp Pulse Resp BP Pulse Ox O2 Del Method O2 Flow Rate 99.1 F H 68 18 106/56 95 Nasal Cannula 1 03/24/22 23:46 03/25/22 07:00 03/25/22 03:23 03/25/22 03:23 03/25/22 03:23 03/25/22 03:23 03/25/22 03:23 Period Temp Pulse Resp BP Sys/Beck Pulse Ox O2 Del Method O2 Flow Rate Last 24 Hr 96.6 F-99.1 F 68-82 16-20 96-136/48-77 93-99 Nasal Cannula- Room Air 1-1 Intake and Output 03/24/22 03/25/22 03/25/22 19:59 03:59 11:59 Intake Total 360 Output Total 0 250 Balance 360 -250 Weight 183 lb 8 oz Intake & Output: Intake & Output 03/24/22 03/25/22 03/25/22 19:59 03:59 11:59 Intake Total 360 Output Total 0 250 Balance 360 -250 Weight 183 lb 8 oz Intake: Oral 360 Output: Urine Catheter Amount 100 Uretheral (Alvarez) 100 Void Amount 150 Hemodialysis UF 0 Other: Urine Appearance Clear Uretheral (Alvarez) Clear Urine Color Yellow Uretheral (Alvarez) Yellow Urine Odor Normal Uretheral (Alvarez) Normal General appearance: cooperative and no acute distress Head Head exam: Present normal inspection Eye Eye exam: Present normal appearance ENT ENT exam: Present mucous membranes moist Respiratory Respiratory exam: Absent respiratory distress Cardiovascular Cardiovascular exam: Present normal rate and rhythm GI/Abdominal GI/Abdominal exam: Present soft; Absent tenderness Extremities Exam Extremities exam: Absent joint swelling or pedal edema Neurological Exam Neurological exam: Present alert and oriented X3 Psychiatric Psychiatric exam: Present normal affect and normal mood Skin Skin exam: Present warm; Absent rash A/P Assessment and plan (1) ESRD on hemodialysis: Assessment and plan: Margarita French is a 66-year-old female with end stage renal disease on hemodialysis, chronic anemia due to ESRD, hypertension, diabetes mellitus type 2, rheumatoid arthritis, history of DVT on Apixaban, peripheral artery disease s/p stenting transferred from [facility] for hip fracture. Nephrology consultation was requested for end stage renal disease. End stage renal disease on hemodialysis on TTS at [facility], followed by Dr. Connor. Right IJ tunneled hemodialysis catheter. Left arm AV fistula placement on 07/14/21, not being used yet, but has good thrill. Chronic anemia due to ESRD. No fluid overload. Progress: Hemodialysis on 03/22/22 for 3 hours without heparin. Left cemented ken hip arthroplasty on 03/23/22. Hemodialysis on 03/24/22 for 3 hours without heparin. Recommendations/Plan: Next hemodialysis on Sunday as inpatient or outpatient. There is no inpatient hemodialysis available until Sunday. Status: Chronic Time Spent With Patient Time: Total time spent is greater than 50% in coordination of care (as documented) at patient's floor/unit and/or counseling patient: Subsequent: Total time with patient: 25 - 34 minutes
[2022-03-25] MEDS: APIXABAN 5 MG TABLET PO SCH ×2 (09:12→20:48)
[2022-03-25] MEDS: DOCUSATE SODIUM 100 MG CAPSULE PO SCH ×2 (09:12→20:48)
--- NOTE | 2022-03-25 10:06 | Internal Med Progress Note ---
SUBJECTIVE Subjective Patient information: Note initiated : 03/25/22 at 10:05 am Service Date, if different from initiated Date: [] Patient: Margarita French 66 y/o F admitted on 03/21/22 for Left Hemiarthroplasty Hip. Chief Complaint: [] Principal diagnosis: Left hip fracture Interval history: The patient worked with physical therapy this morning. She is currently waiting for placement to long-term facility. Constitutional Vitals: Vital Signs Temp Pulse Resp BP Pulse Ox O2 Del Method O2 Flow Rate 97.5 F 83 18 97/48 91 Room Air 1 03/25/22 08:05 03/25/22 08:05 03/25/22 03:23 03/25/22 08:05 03/25/22 08:05 03/25/22 08:05 03/25/22 03:23 Period Temp Pulse Resp BP Sys/Beck Pulse Ox O2 Del Method O2 Flow Rate Last 24 Hr 96.6 F-99.1 F 68-83 16-20 96-136/48-77 91-99 Nasal Cannula- Room Air 1-1 Intake and Output 03/24/22 03/25/22 03/25/22 19:59 03:59 11:59 Intake Total 360 Output Total 0 250 Balance 360 -250 Weight 83.234 kg Intake & Output: Intake & Output 03/24/22 03/25/22 03/25/22 19:59 03:59 11:59 Intake Total 360 Output Total 0 250 Balance 360 -250 Weight 83.234 kg Intake: Oral 360 Output: Urine Catheter Amount 100 Uretheral (Alvarez) 100 Void Amount 150 Hemodialysis UF 0 Other: Urine Appearance Clear Uretheral (Alvarez) Clear Urine Color Yellow Uretheral (Alvarez) Yellow Urine Odor Normal Uretheral (Alvarez) Normal Head Head exam: Present atraumatic and normal inspection Eye Eye exam: Present normal appearance ENT ENT exam: Present mucous membranes moist, normal exam and normal external ear exam Neck Neck exam: Present normal inspection Respiratory Respiratory exam: Present normal respiratory exam Cardiovascular Cardiovascular exam: Present normal rate and rhythm GI/Abdominal GI/Abdominal exam: Present normal bowel sounds Back Exam Back exam: Present normal inspection Neurological Exam Neurological exam: Present alert and oriented X3 Skin Skin exam: Present intact and warm OBJ DATA Labs 03/24/22 08:17 03/24/22 08:17 Labs: Abnormal Lab Results 03/24/22 03/24/22 08:17 08:17 RBC 3.44 L Hgb 9.9 L Hct 31.4 L RDW 19.1 H Neut % (Auto) 80.5 H Lymph % (Auto) 7.0 L Lymph # (Auto) 0.52 L Sodium 129 L Anion Gap 7.0 L BUN 26 H Creatinine 3.6 H Glucose 185 H Calcium 7.8 L Meds: Medications Acetaminophen (Acetaminophen 500 Mg Tablet) 1,000 mg PO Q8H [facility]; Protocol Last Admin: 03/25/22 08:15 Dose: Not Given Apixaban (Apixaban 5 Mg Tablet) 2.5 mg PO BID [facility] Last Admin: 03/25/22 09:12 Dose: 2.5 mg Dextrose (Dextrose 50% 50 Ml Vial) 0 ml IV UD PRN PRN Reason: Per Sliding Scale Diagnostic Test (Pha) (Accu-Chek 1 Each Strip) 1 each FS [facility] Last Admin: 03/25/22 07:15 Dose: 1 each Docusate Sodium (Docusate Sodium 100 Mg Capsule) 100 mg PO BID [facility] Last Admin: 03/25/22 09:12 Dose: 100 mg Glucose (Dextrose 31 Gm Oral.Susp) 15 gm PO PRN PRN PRN Reason: Hypoglycemia Insulin Human Lispro (Insulin Lispro 1 Unit/0.01 Ml Unit) 0 unit SQ [facility]; Protocol Last Admin: 03/25/22 07:15 Dose: Not Given Methocarbamol (Methocarbamol 500 Mg Tablet) 500 mg PO TIDP PRN PRN Reason: Muscle Spasm Last Admin: 03/24/22 21:31 Dose: 500 mg Ondansetron HCl (Ondansetron 4 Mg/2 Ml Vial) 4 mg IV Q6HP PRN PRN Reason: Nausea And Vomiting Last Admin: 03/24/22 05:54 Dose: 4 mg Oxycodone HCl (Oxycodone Hcl 5 Mg Tablet) 0 mg PO Q4HP PRN; Protocol PRN Reason: Per Pain Protocol Last Admin: 03/25/22 09:19 Dose: 10 mg Senna (Sennosides 1 Tablet) 2 tab PO HS [facility] Last Admin: 03/24/22 21:30 Dose: 2 tab Sodium Chloride (0.9 % Sodium Chloride 10 Ml Syringe) 10 ml IV Q8 [facility] Last Admin: 03/25/22 05:49 Dose: 10 ml A/P Assessment and plan (1) ESRD on hemodialysis: Status: Chronic (2) Rheumatoid arthritis: Status: Chronic Qualifiers: Rheumatoid arthritis location: multiple sites Rheumatoid factor presence: with rheumatoid factor Qualified Code(s): M05.79 - Rheumatoid arthritis with rheumatoid factor of multiple sites without organ or systems involvement (3) Diabetes mellitus, type II: Status: Chronic (4) Hypertension, essential: Status: Chronic (5) Hyperlipidemia: Status: Chronic (6) Osteoporosis: Status: Chronic Narrative A/P Narrative: We will continue to manage the patient's medical comorbidities. She is undergoing hemodialysis today per nephrology. Her Eliquis is being held for 48 hours. She is scheduled for orthopedic surgery tomorrow. She will be made n.p.o. after midnight. Medication reconciliation is pending. 03/23: The patient will be taken to the OR today. Postop management per orthopedic surgery. We will also restart her Eliquis 24 hours postop. She is scheduled for hemodialysis tomorrow from my understanding. PT and OT will work with her regarding disposition planning. 03/24: The patient will have her Eliquis restarted this evening. She will need to go to a long-term facility. Case management and social work will work on disposition. 03/25: SNF for hip fracture rehabilitation Time Spent With Patient Time: Total time spent is greater than 50% in coordination of care (as documented) at patient's floor/unit and/or counseling patient: Subsequent: Total time with patient: 25 - 34 minutes
[2022-03-25] MEDS: METHOCARBAMOL 500 MG TABLET PO PRN (14:10)
[2022-03-25] MEDS ORDERED: morphine 2 MG/ML VIAL IV PRN (16:29)
[2022-03-25] MEDS: SENNOSIDES 1 TABLET PO SCH (20:48)
[2022-03-26] MEDS: ACETAMINOPHEN 500 MG TABLET PO SCH ×3 (00:10→17:07)
[2022-03-26] MEDS: 0.9 % SODIUM CHLORIDE 10 ML SYRINGE IV SCH ×3 (05:20→20:38)
[2022-03-26] MEDS: INSULIN LISPRO 1 UNIT/0.01 ML UNIT SQ SCH ×4 (07:29→20:48)
--- NOTE | 2022-03-26 08:09 | Nephrology Progress Note ---
SUBJECTIVE Subjective Patient information: Note initiated : 03/26/22 at 8:08 am Patient: Margarita French a 66 y/o F admitted on 03/21/22 for Left Hemiarthroplasty Hip. Chief Complaint: Weakness Principal diagnosis: Left hip fracture Pertinent ROS: Weakness Constitutional Vitals: Vital Signs Temp Pulse Resp BP Pulse Ox O2 Del Method O2 Flow Rate 97.5 F 72 16 115/66 94 Room Air 1 03/26/22 07:54 03/26/22 07:54 03/26/22 07:54 03/26/22 07:54 03/26/22 07:54 03/26/22 07:54 03/25/22 03:23 Period Temp Pulse Resp BP Sys/Beck Pulse Ox O2 Del Method O2 Flow Rate Last 24 Hr 97.2 F-98.0 F 72-80 16-20 91-115/47-66 94-97 Room Air-Room Air Intake and Output 03/25/22 03/26/22 03/26/22 19:59 03:59 11:59 Intake Total 1600 Output Total 300 175 Balance 1300 -175 Weight 187 lb Intake & Output: Intake & Output 03/25/22 03/26/22 03/26/22 19:59 03:59 11:59 Intake Total 1600 Output Total 300 175 Balance 1300 -175 Weight 187 lb Intake: Oral 1600 Output: Urine Catheter Amount 300 Void Amount 175 Other: Meal Lunch Percent of Meal Consumed 75% Feeding Ability Assist with Tray Set Up Urine Appearance Clear Clear Clear Uretheral (Alvarez) Clear Urine Color Dark Yellow Yellow Yellow Uretheral (Alvarez) Yellow Urine Odor Normal Normal General appearance: cooperative and no acute distress Head Head exam: Present normal inspection Eye Eye exam: Present normal appearance ENT ENT exam: Present mucous membranes moist Respiratory Respiratory exam: Absent respiratory distress Cardiovascular Cardiovascular exam: Present normal rate and rhythm GI/Abdominal GI/Abdominal exam: Present soft; Absent tenderness Extremities Exam Extremities exam: Absent joint swelling or pedal edema Neurological Exam Neurological exam: Present alert and oriented X3 Psychiatric Psychiatric exam: Present normal affect and normal mood Skin Skin exam: Present warm; Absent rash A/P Assessment and plan (1) ESRD on hemodialysis: Assessment and plan: Margarita French is a 66-year-old female with end stage renal disease on hemodialysis, chronic anemia due to ESRD, hypertension, diabetes mellitus type 2, rheumatoid arthritis, history of DVT on Apixaban, peripheral artery disease s/p stenting transferred from [facility] for hip fracture. Nephrology consultation was requested for end stage renal disease. End stage renal disease on hemodialysis on TTS at [facility], followed by Dr. Connor. Right IJ tunneled hemodialysis catheter. Left arm AV fistula placement on 07/14/21, not being used yet, but has good thrill. Chronic anemia due to ESRD. No fluid overload. Progress: Hemodialysis on 03/22/22 for 3 hours without heparin. Left cemented ken hip arthroplasty on 03/23/22. Hemodialysis on 03/24/22 for 3 hours without heparin. Recommendations/Plan: Next hemodialysis on Sunday as inpatient or outpatient. There is no inpatient hemodialysis available until Sunday. Status: Chronic Time Spent With Patient Time: Total time spent is greater than 50% in coordination of care (as documented) at patient's floor/unit and/or counseling patient: Subsequent: Total time with patient: 25 - 34 minutes
[2022-03-26] MEDS: oxyCODONE HCL 5 MG TABLET PO PRN ×2 (08:14→20:43)
[2022-03-26] MEDS: DOCUSATE SODIUM 100 MG CAPSULE PO SCH ×2 (08:30→20:42)
[2022-03-26] MEDS: APIXABAN 5 MG TABLET PO SCH ×2 (08:30→20:42)
[2022-03-26] MEDS: METHOCARBAMOL 500 MG TABLET PO PRN ×2 (11:42→20:42)
--- NOTE | 2022-03-26 15:01 | Internal Med Progress Note ---
SUBJECTIVE Subjective Patient information: Note initiated : 03/26/22 at 2:53 pm Service Date, if different from initiated Date: [] Patient: Margarita French a 66 y/o F admitted on 03/21/22 for Left Hemiarthroplasty Hip. Chief Complaint: [] Principal diagnosis: Left hip fracture Interval history: Ms. French is a 66 year old F with a complex past medical history significant for diabetes mellitus type 2, hypertension, hyperlipidemia, rheumatoid arthritis, and ESRD on HD who presented to outside hospital with severe left hip pain. The patient states that she is mainly wheelchair dependent. She normally sleeps in her living room as there is a recliner and she is able to keep her feet elevated. It was approximately 2 AM, when she was attempting to transfer to her wheelchair she needed to go to the restroom however ended up having a ground-level fall. The patient does not have a medical alert bracelet and lives alone. She called her daughter who came over and her grandson. He was able to put her back in bed. She remained at home for nearly 24 hours and did not realize that her hip was fractured. She continued to experience significant pain and that is when she decided to call EMS the following day. She initially presented to [facility] ER however they were unable to accommodate her dialysis needs and recommended transfer to our facility. Nephrology accepted. Orthopedic surgery accepted as well. The patient normally undergoes HD Sunday, and Saturdays. She missed hemodialysis yesterday. The hospital service was asked admit the patient for further management and evaluation of her medical comorbidities. 03/23: The patient was resting comfortably in bed. She underwent hemodialysis . She has no other complaints or concerns. Her was present at the bedside to discuss plan of care. She is scheduled to go to the OR this afternoon. 03/24: The patient was resting comfortably in bed. Discussed plan of care with her at the bedside. 03/25: The patient worked with physical therapy this morning. [facility] 03/26: Patient is feeling well this afternoon. c/o mild left hip pain. No other discomfort. Pending hemodialysis this coming Sunday either inpatient or outpatient. Continue symptoms control for left hip fracture s/p surgery. Continue to work with physical therapy. Pending SNF placement. Constitutional Vitals: Vital Signs Temp Pulse Resp BP Pulse Ox O2 Del Method O2 Flow Rate 36.7 C 84 16 115/72 97 Room Air 1 03/26/22 11:43 03/26/22 11:43 03/26/22 11:43 03/26/22 11:43 03/26/22 11:43 03/26/22 11:43 03/25/22 03:23 Period Temp Pulse Resp BP Sys/Beck Pulse Ox O2 Del Method O2 Flow Rate Last 24 Hr 36.4 C-36.7 C 72-84 16-20 91-115/47-72 94-97 Room Air-Room Air Intake and Output 03/26/22 03/26/22 03/26/22 03:59 11:59 19:59 Output Total 175 Balance -175 Weight 84.822 kg Intake & Output: Intake & Output 03/26/22 03/26/22 03/26/22 03:59 11:59 19:59 Output Total 175 Balance -175 Weight 84.822 kg Output: Void Amount 175 Other: Urine Appearance Clear Clear Uretheral (Alvarez) Clear Urine Color Yellow Yellow Uretheral (Alvarez) Yellow Urine Odor Normal Normal Head Head exam: Present atraumatic and normal inspection Eye Eye exam: Present normal appearance ENT ENT exam: Present mucous membranes moist, normal exam and normal external ear exam Neck Neck exam: Present normal inspection Respiratory Respiratory exam: Present normal respiratory exam Cardiovascular Cardiovascular exam: Present normal rate and rhythm GI/Abdominal GI/Abdominal exam: Present normal bowel sounds Extremities Exam Extremities exam: Present tenderness; Absent full ROM or normal inspection Additional comments: Left lateral hip covered by surgical dressing. Tenderness to palpation Right lateral ankle covered by wound dressing. Tenderness to palpation Back Exam Back exam: Present normal inspection Neurological Exam Neurological exam: Present alert and oriented X3 Skin Skin exam: Present intact and warm OBJ DATA Labs 03/24/22 08:17 03/24/22 08:17 Labs: Abnormal Lab Results 03/24/22 03/24/22 08:17 08:17 RBC 3.44 L Hgb 9.9 L Hct 31.4 L RDW 19.1 H Neut % (Auto) 80.5 H Lymph % (Auto) 7.0 L Lymph # (Auto) 0.52 L Sodium 129 L Anion Gap 7.0 L BUN 26 H Creatinine 3.6 H Glucose 185 H Calcium 7.8 L Meds: Medications Acetaminophen (Acetaminophen 500 Mg Tablet) 1,000 mg PO Q8H [facility]; Protocol Last Admin: 03/26/22 08:17 Dose: Not Given Apixaban (Apixaban 5 Mg Tablet) 2.5 mg PO BID [facility] Last Admin: 03/26/22 08:30 Dose: 2.5 mg Dextrose (Dextrose 50% 50 Ml Vial) 0 ml IV UD PRN PRN Reason: Per Sliding Scale Diagnostic Test (Pha) (Accu-Chek 1 Each Strip) 1 each FS [facility] Last Admin: 03/26/22 11:33 Dose: 1 each Docusate Sodium (Docusate Sodium 100 Mg Capsule) 100 mg PO BID [facility] Last Admin: 03/26/22 08:30 Dose: 100 mg Glucose (Dextrose 31 Gm Oral.Susp) 15 gm PO PRN PRN PRN Reason: Hypoglycemia Insulin Human Lispro (Insulin Lispro 1 Unit/0.01 Ml Unit) 0 unit SQ [facility]; Protocol Last Admin: 03/26/22 11:41 Dose: 6 units Methocarbamol (Methocarbamol 500 Mg Tablet) 500 mg PO TIDP PRN PRN Reason: Muscle Spasm Last Admin: 03/26/22 11:42 Dose: 500 mg Morphine Sulfate (Morphine 2 Mg/Ml Vial) 2 mg IV Q4HP PRN; Protocol PRN Reason: Per Pain Protocol Ondansetron HCl (Ondansetron 4 Mg/2 Ml Vial) 4 mg IV Q6HP PRN PRN Reason: Nausea And Vomiting Last Admin: 03/24/22 05:54 Dose: 4 mg Oxycodone HCl (Oxycodone Hcl 5 Mg Tablet) 0 mg PO Q4HP PRN; Protocol PRN Reason: Per Pain Protocol Last Admin: 03/26/22 08:14 Dose: 10 mg Senna (Sennosides 1 Tablet) 2 tab PO HS [facility] Last Admin: 03/25/22 20:48 Dose: 2 tab Sodium Chloride (0.9 % Sodium Chloride 10 Ml Syringe) 10 ml IV Q8 [facility] Last Admin: 03/26/22 05:20 Dose: 10 ml A/P Assessment and plan (1) ESRD on hemodialysis: Status: Chronic (2) Hip fracture, left: Status: Acute (3) History of hemiarthroplasty of left hip: Status: Acute (4) Anemia in ESRD (end-stage renal disease): Status: Acute (5) Type 2 diabetes mellitus with ESRD (end-stage renal disease): Status: Acute (6) Hypertension, essential: Status: Chronic Narrative A/P Narrative: Assessment and Plans: 1. ESRD on hemodialysis: Continue to work with Dr. Lopez/Nikolas for dialysis needs Next hemodialysis session: Next Sunday03/28/22 either inpatient or outpatient 2. Left displaced femoral neck fracture s/p left hip cemented hemiarthroplasty: Continue post-operative care as per orthopedic team Kailey Tylenol Oxycodone Robaxin Morphine Physical therapy evaluation and treatment, pending SNF placement 3. Anemia associated with ESRD: cbc w/ auto diff in the morning to trend H/H 4. Essential hypertension: Continue to monitor 5. T2DM: HgA1c Hold any oral hypoglycemics Insulin Lispro SSI AC HS Accu Check AC HS Hypoglycemia protocol Diabetic diet GI ppx: not currently indicated DVT ppx: Eliquis Code status: DNR Prognosis: DNR Disposition: Inpatient med surg; SNF Time Spent With Patient Time: Total time spent is greater than 50% in coordination of care (as documented) at patient's floor/unit and/or counseling patient: Subsequent: Total time with patient: 35 - 49 minutes
[2022-03-26] MEDS: SENNOSIDES 1 TABLET PO SCH (20:42)
[2022-03-27] MEDS: ACETAMINOPHEN 500 MG TABLET PO SCH ×2 (00:46→08:26)
[2022-03-27] MEDS: oxyCODONE HCL 5 MG TABLET PO PRN ×2 (02:08→13:05)
[2022-03-27] MEDS: 0.9 % SODIUM CHLORIDE 10 ML SYRINGE IV SCH (05:03)
--- NOTE | 2022-03-27 07:25 | Nephrology Progress Note ---
SUBJECTIVE Subjective Patient information: Note initiated : 03/27/22 at 7:24 am Patient: Margarita French a 66 y/o F admitted on 03/21/22 for Left Hemiarthroplasty Hip. Chief Complaint: Weakness Principal diagnosis: Left hip fracture Pertinent ROS: Weakness Constitutional Vitals: Vital Signs Temp Pulse Resp BP Pulse Ox O2 Del Method O2 Flow Rate 97.8 F 73 20 104/57 95 Room Air 1 03/27/22 04:00 03/27/22 04:00 03/27/22 04:00 03/27/22 04:00 03/27/22 04:00 03/27/22 04:00 03/25/22 03:23 Period Temp Pulse Resp BP Sys/Beck Pulse Ox O2 Del Method O2 Flow Rate Last 24 Hr 97.5 F-99.3 F 72-84 16-20 102-134/52-73 93-99 Room Air-Room Air Intake and Output 03/26/22 03/27/22 03/27/22 19:59 03:59 11:59 Intake Total 400 240 Balance 400 240 Weight 192 lb Intake & Output: Intake & Output 03/26/22 03/27/22 03/27/22 19:59 03:59 11:59 Intake Total 400 240 Balance 400 240 Weight 192 lb Intake: Oral 400 240 Other: # Bowel Movements 0 General appearance: cooperative and no acute distress Head Head exam: Present normal inspection Eye Eye exam: Present normal appearance ENT ENT exam: Present mucous membranes moist Respiratory Respiratory exam: Absent respiratory distress Cardiovascular Cardiovascular exam: Present normal rate and rhythm GI/Abdominal GI/Abdominal exam: Present soft; Absent tenderness Extremities Exam Extremities exam: Absent joint swelling or pedal edema Neurological Exam Neurological exam: Present alert and oriented X3 Psychiatric Psychiatric exam: Present normal affect and normal mood Skin Skin exam: Present warm; Absent rash A/P Assessment and plan (1) ESRD on hemodialysis: Assessment and plan: Margarita French is a 66-year-old female with end stage renal disease on hemodialysis, chronic anemia due to ESRD, hypertension, diabetes mellitus type 2, rheumatoid arthritis, history of DVT on Apixaban, peripheral artery disease s/p stenting transferred from [facility] for hip fracture. Nephrology consultation was requested for end stage renal disease. End stage renal disease on hemodialysis on TTS at [facility], followed by Dr. Connor. Right IJ tunneled hemodialysis catheter. Left arm AV fistula placement on 07/14/21, not being used yet, but has good thrill. Chronic anemia due to ESRD. No fluid overload. Progress: Hemodialysis on 03/22/22 for 3 hours without heparin. Left cemented ken hip arthroplasty on 03/23/22. Hemodialysis on 03/24/22 for 3 hours without heparin. Recommendations/Plan: Next hemodialysis on Sunday as inpatient or outpatient. There is no inpatient hemodialysis available until Sunday. Status: Chronic Time Spent With Patient Time: Total time spent is greater than 50% in coordination of care (as documented) at patient's floor/unit and/or counseling patient: Subsequent: Total time with patient: 25 - 34 minutes
[2022-03-27] MEDS: INSULIN LISPRO 1 UNIT/0.01 ML UNIT SQ SCH ×2 (07:50→12:31)
[2022-03-27] MEDS: APIXABAN 5 MG TABLET PO SCH (08:25)
[2022-03-27] MEDS: DOCUSATE SODIUM 100 MG CAPSULE PO SCH (08:25)
--- NOTE | 2022-03-27 11:27 | Discharge Summary ---
Discharge Provider Provider IMPORTANT FOLLOW-UP INFORMATION FOR PCP: Patient information: Note initiated : 03/27/22 at 11:25 am Service Date, if different from initiated Date: [] Patient: Margarita French 66 y/o F admitted on 03/21/22 for Left Hemiarthroplasty Hip. Chief Complaint: [] Date of admission: 03/21/22 21:11 Discharge date: 03/27/22 Primary care physician: YESSICA Colin Attending physician on admission: Lucille Rock Consults: 03/21/22 19:51 Consult to Physician [CONS] Routine Comment: Consulting Provider: Jennifer Lopez Reason For Exam: Physician to Consult Consult to Physician [CONS] Routine Comment: Consulting Provider: Jocelin Lizarraga Reason For Exam: Physician to Consult 03/21/22 21:23 Consult to Physician [CONS] Routine Comment: Consulting Provider: Keyshawn Torrez Reason For Exam: Physician to Consult 03/21/22 21:24 Consult to Physician [CONS] Routine Comment: Consulting Provider: Rodolfo Connor Reason For Exam: Physician to Consult 03/22/22 07:50 Consult to Physician [CONS] Routine Comment: Consulting Provider: Jocelin Lizarraga Reason For Exam: Physician to Consult Attending physician on discharge: New Ernandez Pui COURSE Hospital Course Hospital course: Ms. French is a 66 year old F with a complex past medical history significant for diabetes mellitus type 2, hypertension, hyperlipidemia, rheumatoid arthritis, and ESRD on HD who presented to outside hospital with severe left hip pain. The patient states that she is mainly wheelchair dependent. She n ormally sleeps in her living room as there is a recliner and she is able to keep her feet elevated. It was approximately 2 AM, when she was attempting to transfer to her wheelchair she needed to go to the restroom however ended up having a ground-level fall. The patient does not have a medical alert bracelet and lives alone. She called her daughter who came over and her grandson. He was able to put her back in bed. She remained at home for nearly 24 hours and did not realize that her hip was fractured. She continued to experience significant pain and that is when she decided to call EMS the following day. She initially presented to [facility] ER however they were unable to accommodate her dialysis needs and recommended transfer to our facility. Nephrology accepted. Orthopedic surgery accepted as well. The patient normally undergoes HD Sunday, and Saturdays. She missed hemodialysis yesterday. The hospital service was asked admit the patient for further management and evaluation of her medical comorbidities. 03/23: The patient was resting comfortably in bed. She underwent hemodialysis yesterday. She has no other complaints or concerns. Her was present at the bedside to discuss plan of care. She is scheduled to go to the OR this afternoon. 03/24: The patient was resting comfortably in bed. Discussed plan of care with her at the bedside. 03/25: The patient worked with physical therapy this morning. She is currently waiting for placement to nursing home facility. 03/26: Patient is feeling well this afternoon. c/o mild left hip pain. No other discomfort. Pending hemodialysis this coming Sunday either inpatient or outpatient. Continue symptoms control for left hip fracture s/p surgery. Continue to work with physical therapy. Pending SNF placement. 03/27: Discharged to SNF. f/u PCP and with orthopedics. Hemodialysis on 03/28/22. Patient would benefit from pain clinic referral. Discharge diagnosis: hip fracture Time Spent with Patient Time attestation: Total time spent providing and/or coordinating discharge services: Time spent: Less than 30 minutes EXAM Constitutional Vitals: Temp Pulse Resp BP Pulse Ox O2 Del Method O2 Flow Rate 36.9 C 74 16 101/56 96 Room Air 1 03/27/22 08:00 03/27/22 08:00 03/27/22 08:00 03/27/22 08:00 03/27/22 08:00 03/27/22 08:00 03/25/22 03:23 General appearance: cooperative and no acute distress Head Head exam: Present atraumatic and normocephalic Eye Eye exam: Present EOMI and PERRL ENT ENT exam: Present mucous membranes moist, normal exam and normal external ear exam Neck Neck exam: Present normal inspection; Absent lymphadenopathy, tenderness or thyromegaly Respiratory Respiratory exam: Absent accessory muscle use, respiratory distress or wheezes Cardiovascular Cardiovascular exam: Present normal rate and rhythm; Absent JVD GI/Abdominal GI/Abdominal exam: Present normal bowel sounds and soft; Absent organomegaly or tenderness Extremities Exam Extremities exam: Present normal capillary refill and tenderness; Absent full ROM or normal inspection Additional comments: Left lateral hip covered by wound dressing Neurological Exam Neurological exam: Present alert, CN II-XII intact and oriented X3; Absent motor sensory deficit Psychiatric Psychiatric exam: Present normal affect and normal mood; Absent anxious or depressed Skin Skin exam: Present dry and intact Discharge Plan Patient/Caregiver Discharge Instructions Activity: ambulate only with your walker and as instructed Diet: Renal/Consistent Carbs Activity Restrictions/Additional Instructions: -weight bearing as tolerated- use a walker or crutches as needed. At baseline was limited to wheelchair/bed/couch primarily so would not expect more function than prior to fracture. However, there are posterior hip precautions for 6 weeks- those are the ones reviewed with you by therapy and reason a pillow is between your legs when you sleep. -the silver dressing on your hip is ok to get wet. Ok to shower with it in place. Do not remove until your follow up appointment. If the edges wrinkle and water gets under the dressing, remove the dressing and replace with dry gauze (stop getting the incision wet if this happens). -Work on tightening and relaxing your thigh muscles. Tighten your thigh muscles and lift your leg. Work on moving your ankle up and down. Tighten and relax your butt muscles. -Ice your hip for 20-30 minutes every 2-3 hours throughout the day -Tylenol is to help with the pain, take this scheduled every 8 hours even if you do not have significant pain -Oxycodone is the narcotic pain medication which to be taken as needed. Meaning only take it if the other pain medications are not sufficient in controlling your pain. -Muscle relaxer is to help with the spasms that you experienced Prescriptions: New acetaminophen 500 mg Tablet 1,000 mg PO Q8H Qty: 90 0RF docusate sodium 100 mg Capsule 100 mg PO BID Qty: 60 0RF Eliquis 5 mg Tablet 2.5 mg PO BID Qty: 60 0RF methocarbamol 500 mg Tablet 500 mg PO TIDP PRN (Reason: Muscle Spasm) Qty: 20 0RF oxycodone 5 mg Tablet 5 - 10 mg PO Q4HP PRN (Reason: Per Pain Protocol) Qty: 50 0RF polyethylene glycol 3350 [Miralax] 17 gram powder in packet 17 g PO QDAY PRN (Reason: constipation) Qty: 14 0RF Continued losartan 25 mg tablet 25 mg PO QDAY Patient Comments: Take 1 tablet daily atorvastatin 20 mg tablet 20 mg PO QHS Qty: 30 11RF (DME) FreeStyle Bowen 14 Day [place] Misc MISCELLANEOUS Patient Comments: Use 1 as directed subcutaneously every two weeks insulin lispro [Admelog U-100 Insulin lispro] 100 unit/mL solution See Protocol subcut ACHS Protocol: Insulin Sliding Scale, Med Condition: HUMALOG/NOVALOG SC SLIDING Dose/Route: SCALE Condition: FSBS < 70 Dose/Route: Give 4 Oz juice, or 15gm oral Instruction: Glucose, or 25ml D50W IV if Dose/Route: unable to take PO. Recheck in Instruction: 15 min and repeat if FSBS < 70 Condition: FSBS 71-140 Dose/Route: NO COVERAGE Condition: FSBS 141-170 Dose/Route: 2 UNITS Condition: FSBS 171-200 Dose/Route: 4 UNITS Condition: FSBS 201-250 Dose/Route: 6 UNITS Condition: FSBS 251-300 Dose/Route: 8 UNITS Condition: FSBS 301-350 Dose/Route: 10 UNITS Condition: FSBS 351-400 Dose/Route: 12 UNITS Condition: FSBS > 400 Dose/Route: 14 UNITS; REPEAT Q2H X2 Instruction: CONTINUE FOLLOWING SLIDING Condition: SCALE; IF STILL > 400; CALL Dose/Route: PHYSICIAN Patient Comments: Pt states she takes as needed Discontinued Eliquis 2.5 mg tablet 2.5 mg PO DAILY Follow Up Plan Follow up with: PCP, PCP [Other] Sarthak Tiwari PA-C [Physician Catering And Events Manager] - (post op follow up) Patient Disposition: Xfer SNF Rehab Potential: Fair I certify that the patient requires SNF services: Yes Overall status at discharge: patient is progressing back to baseline Discharge Orders: Discharge Order (Routine); Ordered 03/27/22 Ordered By: New Raymond
== END 2022-03-27 14:00 | DRG 521 ==
LOC: MEDSUR 21:11
PROVIDERS: ADMIT Student in an Organized Health Care Education/Training Program; ATTEND Student in an Organized Health Care Education/Training Program